=== PATIENT | female | born 1990 | race Caucasian/White ===

== ENCOUNTER 2020-12-23 11:32 | Observation (INO) | payer MEDICAID, SELFPAY ==
--- NOTE | ~2020-12-23 | CT_ITS ---
EXAMINATION: CT abdomen pelvis w con DATE: 12/23/2020 13:05 INDICATION: Abdominal pain TECHNIQUE: Computed tomography (CT) of the abdomen and pelvis was performed with 100 mL Omnipaque-350 intravenous contrast. Automated exposure control and iterative reconstruction technique were employe d. The dose-length product was 342.61 mGy-cm. COMPARISON: None FINDINGS: Minimal bibasilar atelectasis. Heart size is normal. No pericardial or pleural effusion. Liver, gallb ladder, spleen, pancreas and bilateral adrenal glands there are couple thin wedge-shaped regions of d ecreased cortical enhancement at the upper pole of the right kidney raising suspicion for pyelonephri tis. A couple 1-2 mm stones at lower pole calyx of the right kidney with additional 2 mm stone at a l ower pole calyx of the left kidney. No ureteral stones or hydronephrosis. Bowels including the append ix are normal. Bladder, uterus and left adnexa are normal. Subtle peripheral enhancement at a 2.9 cm right ovarian likely corpus luteum cyst. Small amount of intermediate attenuation complex fluid versu s pneumoperitoneum in the cul-de-sac. No abscess or free intraperitoneal gas. No pathologically enlar ged abdominal or pelvic lymphadenopathy. L5 is sacralized on the left. Small hypoplastic riblets bila terally at T12. IMPRESSION: 1. Small amount of nonspecific complex fluid in the cul-de-sac. Differential would include peritoniti s or small amount of hemoperitoneum potentially related to rupture of a 2.9 cm right ovarian likely c orpus luteum cyst. 2. Couple thin wedge-shaped regions of decreased parenchymal enhancement in the right kidney which co uld represent pyelonephritis or scarring related to prior infarct or infection. 3. Nonobstructing bilateral nephrolithiasis. Reviewed, dictated and finalized at location A. IMPRESSION: 1. Small amount of nonspecific complex fluid in the cul-de-sac. Differential wo uld include peritonitis or small amount of hemoperitoneum potentially related t o rupture of a 2.9 cm right ovarian likely corpus luteum cyst. 2. Couple thin wedge-shaped regions of decreased parenchymal enhancement in the right kidney which could represent pyelonephritis or scarring related to prior infarct or infection. 3. Nonobstructing bilateral nephrolithiasis.
[2020-12-23 11:41] VITALS: PULSE 72; RESP 16; TEMP 37.1; O2SAT 100
[2020-12-23 12:08] LABS: Basophils Percent Auto 0.3 % (0.2-1.2); Eosinophils Absolute Auto 0.1 K/mm3 (0-0.3); Eosinophils Percent Auto 1.3 % (0-4.4); Hematocrit 42.4 % (37.0-47.0); Hemoglobin 14.2 g/dL (12.0-15.0); Immature Granulocyte Absolute 0.03 K/mm3 (0.00-0.031); Immature Granulocyte Percent A 0.4 % (0-0.5); Lymphocytes Absolute Auto 2.45 K/mm3 (0.9-3.2); Lymphocytes Percent Auto 34.3 % (18.3-44.2); Mean Corpuscular HGB Conc 33.5 g/dl (32-36); Mean Corpuscular Hemoglobin 30.7 pg (26-34); Mean Corpuscular Volume 91.6 fl (80-100); Mean Platelet Volume 10.4 fl (7.4-10.4); Monocytes Absolute Auto 0.7 K/mm3 (0.1-0.6); Monocytes Percent Auto 10.3 % (2.6-8.5); Neutrophils Absolute Auto 3.8 K/mm3 (1.3-6.7); Neutrophils Percent Auto 53.4 % (45.5-73.1); Platelet Count Result 234 k/mm3 (150-375); Red Blood Count 4.63 M/mm3 (4.2-5.4); Red Cell Distribution Width 12.3 % (11.5-14.5); White Blood Count 7.2 K/mm3 (4.5-10.0)
[2020-12-23 12:13] LABS: Add Urine Microscopic? YES; Appearance Urine Cloudy (Clear); Bilirubin Urine Negative (Negative); Blood Urine Negative (Negative); Color Urine Yellow (Yellow); Glucose Urine UA Negative (Negative); Ketones Urine Negative (Negative); Leukocyte Esterase Ur Negative LEU/UL (Negative); Mucus Urine Rare /lpf; Nitrate Urine Negative (Negative); Protein Urine Negative (Negative); RBC Urine 0-2 /hpf (0-2); Specific Grav Ur 1.018 (1.001-1.035); Squamous Epithelial Cell Urine Many /hpf (Few); Urobilinogen Urine Negative mg/dL (<2.0); WBC Urine 0-3 /hpf
[2020-12-23 12:17] LABS: Alanine Aminotransferase 25 U/L (4-35); Alkaline Phosphatase 58 U/L (38-126); Anion Gap 14 mmol/L (8-16); Aspartate Amino Transferase 24 U/L (14-36); Bilirubin,Total 0.6 mg/dL (0.2-1.3); Blood Urea Nitrogen 15 mg/dL (7-17); Calcium 10.1 mg/dL (8.4-10.2); Carbon Dioxide 25 mmol/L (22-30); Chloride 102 mmol/L (98-107); Estimated CRCL calculation 94 ml/min; Estimated Glomerular Filt Rate > 60; Glucose 96 mg/dL (65-110); Lipase 70 U/L (23-300); Potassium 3.8 mmol/L (3.4-5.0); Sodium 141 mmol/L (137-145)
--- NOTE | 2020-12-23 12:54 | ED.GENADULT ---
HPI - General Adult General Chief complaint: Abdominal Pain Stated complaint: ABD PAIN Time Seen by Provider: 12/23/20 12:14 Source: patient History of Present Illness HPI narrative: Patient is a 30 y/o female complaining of right lower abdominal pain starting about 2 hours ago. She describes her pain as sharp and rates it as 7/10. Her pain radiates to back sometimes. There is no alleviating or exacerbating factor. She has no vomiting, diarrhea, dysuria, hematuria, vaginal bleeding or discharge. Related Data Home Medications Medication Instructions Recorded Confirmed baclofen mg 12/23/20 cetirizine [Allergy Relief mg 12/23/20 12/23/20 (cetirizine)] meloxicam 12/23/20 Allergies Allergy/AdvReac Type Severity Reaction Status Date / Time No Known Allergies Allergy Verified 12/23/20 11:40 Review of Systems Constitutional: Constitutional: Denies chills, Denies fever(s), Denies headache(s) and Denies weakness Eyes: Eyes: Denies blurry vision ENT: Denies headache(s) and Denies neck pain Cardiovascular: Cardiovascular: Denies chest pain and Denies dyspnea Respiratory: Respiratory: Denies cough and Denies dyspnea Gastrointestinal: Gastrointestinal: Reports abdominal pain, Denies diarrhea, Denies nausea and Denies vomiting Genitourinary: Genitourinary: Denies hematuria and Denies dysuria Musculoskeletal: Musculoskeletal: Denies back pain and Denies neck pain Neurologic: Denies headache(s) and Denies weakness [facility] Social History Social History Gender identity (if verbalized by the patient): Female Exam Const: General: no acute distress and well developed Orientation/consciousness: oriented to person, oriented to place, oriented to time and patient oriented x3 HENMT: Head: normocephalic Ears: external ears normal General nose exam: Normal external nose present Eyes: General: appearance normal, both eyes and all related structures Conjunctivae: conjunctivae normal Neck: Neck: normal visual inspection and full ROM Chest: Chest palpation & inspection: normal inspection of the chest and no tenderness Resp: Effort & Inspection: normal respiratory effort Auscultation: clear to auscultation bilaterally Cardio: Rate: regular rate Rhythm: regular rhythm GI: GI Palp: No abdominal tenderness and Yes Soft to palpation Skin: General skin exam: normal color and turgor normal Neuro: General: oriented to person, oriented to place, oriented to time and patient oriented x3 Cognition (Neuro): normal cognition Extrem: General: normal to inspection, full ROM and no pedal edema Psych: Appearance: grossly normal Mental Status: mental status grossly normal Affect: normal affect Course Consultations Consultation #1: Discussed with Shelly (urology), who recommends no specific treatment for abnormal CT findings regarding kidney. Date: 12/23/20 Time: 13:54 Consultation #2: Discussed with Dr. Cortez, who agrees to admit to Dr. Zacarias [place]. Date: 12/23/20 Time: 14:17 Vital Signs Vital signs: Vital Signs Temperature 37.1 C 12/23/20 11:41 Pulse Rate 72 12/23/20 11:41 Respiratory Rate 16 12/23/20 11:41 Pulse Oximetry 100 12/23/20 11:41 Temperature 37.1 C 12/23/20 17:25 Pulse Rate 62 12/23/20 17:35 Respiratory Rate 16 12/23/20 17:35 Blood Pressure 112/81 12/23/20 17:35 Pulse Oximetry 100 12/23/20 17:25 Medical Decision Making Vital Signs Vital Signs: Vital Signs Temperature 37.1 C 12/23/20 11:41 Pulse Rate 72 12/23/20 11:41 Respiratory Rate 16 12/23/20 11:41 Pulse Oximetry 100 12/23/20 11:41 Temperature 37.1 C 12/23/20 17:25 Pulse Rate 62 12/23/20 17:35 Respiratory Rate 16 12/23/20 17:35 Blood Pressure 112/81 12/23/20 17:35 Pulse Oximetry 100 12/23/20 17:25 Lab Data Result diagrams: 12/23/20 11:53 12/23/20 11:53 Labs: Lab Results 12/23/20 07
[2020-12-23] MEDS: KETOROLAC 15 MG/ML VIAL (*BKC) IV PUSH (12:55)
[2020-12-23 13:13] VITALS: BP 101/79; PULSE 67; RESP 14; TEMP 37.1; O2SAT 100
[2020-12-23] MEDS: MORPHINE SULFATE (*CRX) 2 MG/ML INJ IV PUSH (14:06)
[2020-12-23] MEDS: ONDANSETRON INJ 4 MG/2 ML VIAL IV PUSH (14:09)
[2020-12-23] MEDS: fentaNYL CITRATE INJ (*CRX) 100 MCG/2 ML VIAL 50 MCG IV PUSH ×2 (15:38→17:00)
[2020-12-23] MEDS: HYDROcodone/acetaminophen (*CRX) 5-325 MG TABLET 1 TAB PO ×3 (15:38→23:39)
--- NOTE | 2020-12-23 17:20 | PC.NURSE ---
This patient, Yasmin Vasquez, was received from ER per wheelchair to room 280. Patient/family oriented to unit policies and routines
[2020-12-23 17:25] VITALS: BP 101/79; PULSE 67; RESP 14; TEMP 37.1; O2SAT 100
[2020-12-23 17:35] VITALS: BP 112/81; PULSE 62; RESP 16
[2020-12-23 20:20] VITALS: BP 108/71; PULSE 71; RESP 16; TEMP 36.9; O2SAT 98
[2020-12-23] MEDS: MELOXICAM 7.5 MG TABLET 15 MG PO (22:17)
[2020-12-23] MEDS: BACLOFEN 10 MG TABLET PO (22:18)
[2020-12-23 23:32] VITALS: BP 96/58; PULSE 66; RESP 16; TEMP 36.4; O2SAT 96
[2020-12-24] MEDS: HYDROcodone/acetaminophen (*CRX) 5-325 MG TABLET 1 TAB PO ×2 (05:14→09:47)
[2020-12-24 05:19] LABS: Basophils Percent Auto 0.3 % (0.2-1.2); Eosinophils Absolute Auto 0.1 K/mm3 (0-0.3); Eosinophils Percent Auto 1.8 % (0-4.4); Hematocrit 36.2 % (37.0-47.0); Hemoglobin 12.1 g/dL (12.0-15.0); Immature Granulocyte Absolute 0.02 K/mm3 (0.00-0.031); Immature Granulocyte Percent A 0.3 % (0-0.5); Lymphocytes Absolute Auto 2.73 K/mm3 (0.9-3.2); Lymphocytes Percent Auto 40.9 % (18.3-44.2); Mean Corpuscular HGB Conc 33.4 g/dl (32-36); Mean Corpuscular Hemoglobin 30.3 pg (26-34); Mean Corpuscular Volume 90.7 fl (80-100); Mean Platelet Volume 10.7 fl (7.4-10.4); Monocytes Absolute Auto 0.7 K/mm3 (0.1-0.6); Monocytes Percent Auto 9.9 % (2.6-8.5); Neutrophils Absolute Auto 3.1 K/mm3 (1.3-6.7); Neutrophils Percent Auto 46.8 % (45.5-73.1); Platelet Count Result 193 k/mm3 (150-375); Red Blood Count 3.99 M/mm3 (4.2-5.4); Red Cell Distribution Width 12.1 % (11.5-14.5); White Blood Count 6.7 K/mm3 (4.5-10.0)
[2020-12-24] MEDS: ONDANSETRON INJ 4 MG/2 ML VIAL IV PUSH (05:45)
[2020-12-24 08:10] VITALS: BP 103/62; PULSE 66; RESP 16; TEMP 37; O2SAT 98
[2020-12-24] MEDS: DOCUSATE SODIUM 100 MG CAPSULE PO (09:48)
--- NOTE | 2021-02-25 09:56 | PM.DS ---
DS: Admitting Diagnosis Discharge Date 12/24/20 Admitting Diagnosis hemoperitoneum DS: Discharge Diagnosis Discharge Diagnosis (1) Hemoperitoneum: Code(s): K66.1 - Hemoperitoneum Status: Acute (2) Rupture of cyst of right ovary: Code(s): N83.201 - Unspecified ovarian cyst, right side Status: Acute DS: Summary Hospital Course Hospital Course: admitted through ER for observation of pain Time Spent with Patient Time attestation: Total time spent providing and/or coordinating discharge services: Discharge Plan Discharge Consulting providers: Murray Valle Discharging Clinician: Danie Cortez Patient Disposition: Home, Self-Care Activity: may shower and as tolerated Diet: regular Patient Instructions: Ruptured Ovarian Cyst (DC) Stand Alone Forms: General Discharge Information Follow-up/Referrals: Link Gayle MD [Physician] - Discharge Medications: New hydrocodone-acetaminophen 5-325 mg Tablet 1 tablet PO Q3H PRN (Reason: Pain Rated 4-6) Qty: 30 RF: 0 Continued cetirizine [Allergy Relief (cetirizine)] 10 mg tablet 10 mg PO DAILY RF: 0 meloxicam 15 mg tablet 15 mg PO DAILY RF: 0 baclofen 10 mg tablet 10 mg PO HS RF: 0 No Action acetaminophen [Tylenol] 325 mg Capsule 325 mg PO ONCE PRN (Reason: PAIN) RF: 0 cholecalciferol (vitamin D3) [Vitamin D3] 25 mcg (1,000 unit) Tablet 25 mcg PO DAILY RF: 0 ketorolac 10 mg tablet 10 mg PO Q8-10H PRN (Reason: Pain) RF: 0 hydrocodone-acetaminophen 5-325 mg tablet 1 tablet PO Q4H PRN (Reason: pain) Qty: 30 RF: 0 Date of admission: 12/23/20 14:35 Primary Care Provider: Boby Schmidt Admitting Provider: Link Gayle Attending physician on admission: Danie Cortez Condition: Stable
== END 2020-12-24 11:42 | disposition home or self-care (01) ==
LOC: ANHED 12:19 → ANHOB2 12-24 07:21
PROVIDERS: General Practice; Admitting Provider Obstetrics & Gynecology; Emergency Provider Emergency Medicine; PCP Family Medicine Adolescent Medicine; Visit Provider Obstetrics & Gynecology
DX: K66.1 Hemoperitoneum (principal); N83.201 Unspecified ovarian cyst, right side
CPT/HCPCS: 36415; 74177; 80053; 81001; 81025; 83690; 85025; 96374; 96375; 99285; A9270; G0378; G0379; J1885; J2270; J2405; J3010; Q9967

== ENCOUNTER 2020-12-29 03:45 | Day surgery (SDC) | payer OTHER, SELFPAY ==
[2020-12-28 10:37] VITALS: BMI 24.3
--- NOTE | 2020-12-28 15:50 | PM.IMHP ---
H&P: HPI History of Present Illness Date/Time: 12/28/20 15:50 This is a 30 female admitted for diagnostic laparoscopy and possible right ovarian cystectomy. Patient was seen in the ER on 12/23/2020 complaining of severe pelvic pain. She underwent a CT scan which showed a right ovarian cyst and fair amount of pelvic fluid. The pain is unrelenting and she is admitted for diagnostic laparoscopy risks and benefits reviewed Chief Complaint: pelvic pain /right ovarian cyst Review of Systems Review of Systems: All systems reviewed & are unremarkable except as noted in HPI and below PMFSH Social History Social History Smoking status: Never smoker Second hand tobacco smoke exposure: No Alcohol intake: current Drinks per week: 1 Substance use: never Substance use type: does not use Living arrangements: with family Gender identity (if verbalized by the patient): Female Spiritual care concerns: No Meds Home Medications and Allergies Home Medications Medication Instructions Recorded Confirmed Type baclofen 10 mg PO HS 12/23/20 12/28/20 History cetirizine [Allergy Relief 10 mg PO DAILY 12/23/20 12/28/20 History (cetirizine)] meloxicam 15 mg PO DAILY 12/23/20 12/28/20 History hydrocodone-acetaminophen 1 tablet PO Q3H PRN #30 tablet 12/24/20 Rx acetaminophen [Tylenol] 325 mg PO ONCE PRN 12/28/20 12/28/20 History cholecalciferol (vitamin D3) 25 mcg PO DAILY 12/28/20 12/28/20 History [Vitamin D3] ketorolac 10 mg PO Q8-10H PRN 12/28/20 12/28/20 History Allergies Allergy/AdvReac Type Severity Reaction Status Date / Time No Known Allergies Allergy Verified 12/28/20 09:57 Exam Const: General: no acute distress Eyes: General: appearance normal, both eyes and all related structures Neck: Neck: supple and no JVD Thyroid: thyroid normal Resp: Effort & Inspection: normal respiratory effort Auscultation: clear to auscultation bilaterally Cardio: Rate: regular rate Rhythm: regular rhythm GI: Inspection: non-distended GI Palp: Yes Soft to palpation, No Tenderness to palpation present (GI) and No Guarding due to palpation present (GI) Auscultation: normal bowel sounds : External Female Exam: normal external appearance Speculum Exam - Vagina: normal appearance of the vagina Speculum Exam - Cervix: normal appearance of the cervix Bimanual exam- vagina & uterus: Cervical tenderness present Bimanual Exam- Adnexa, other: tender and cul-de-sac tenderness Skin: General skin exam: no rashes or lesions noted Extrem: General: normal to inspection and no edema Psych: Mental Status: mental status grossly normal Affect: normal affect Assessment and Plan Additional Plan impression: Pelvic pain and right ovarian cyst Plan: Diagnostic laparoscopy with possible right cystectomy
[2020-12-29] VITALS (10 sets, daily range): BP systolic 96–123; BP diastolic 53–84; PULSE 55–78; RESP 10–14; TEMP 36.1–36.8; O2SAT 98–100; BMI 26.0
--- NOTE | 2020-12-29 05:44 | WPDHPUPDATE1 ---
History and Physical Update Update Date/Time: 12/29/20 05:44 History and Physical has been reviewed, including an updated exam of the patient. There are NO changes in the patient's condition. Risks, benefits, and alternatives have been discussed and questions answered. Patient agrees to proceed with procedure.
--- NOTE | 2020-12-29 06:45 | WPDANESEPPF ---
Anes - Initial Pre Proc Eval Procedure: Operation Date: 12/29/20 07:30 Proposed Procedures p Diagnostic Laparoscopy - Link Gayle MD Date/Time: 12/29/20 06:45 Surgeon: Link Gayle MD Pre Op Diagnosis: pelvic pain, right ovarian cyst Patient Data Age: 30 Gender: F Height: 1.68 m Weight: 68.5 kg Allergies Allergy/AdvReac Type Severity Reaction Status Date / Time No Known Allergies Allergy Verified 12/28/20 09:57 Home Medications Medication Instructions Recorded Confirmed Type baclofen 10 mg PO HS 12/23/20 12/28/20 History cetirizine [Allergy Relief 10 mg PO DAILY 12/23/20 12/28/20 History (cetirizine)] meloxicam 15 mg PO DAILY 12/23/20 12/28/20 History hydrocodone-acetaminophen 1 tablet PO Q3H PRN #30 tablet 12/24/20 Rx acetaminophen [Tylenol] 325 mg PO ONCE PRN 12/28/20 12/28/20 History cholecalciferol (vitamin D3) 25 mcg PO DAILY 12/28/20 12/28/20 History [Vitamin D3] ketorolac 10 mg PO Q8-10H PRN 12/28/20 12/28/20 History hydrocodone-acetaminophen 1 tablet PO Q4H PRN #30 tablet 12/29/20 Rx Patient hx anesthesia problems: none Family hx anesthesia problems: none [facility] Social History Social History Smoking status: Never smoker Second hand tobacco smoke exposure: No Alcohol intake: current Drinks per week: 1 Substance use: never Substance use type: does not use Living arrangements: with family Gender identity (if verbalized by the patient): Female Spiritual care concerns: No Anes - Eval Final PreProcedure Day of Procedure 12/29/20 06:45 Patient weight: normal Heart: regular rate and rhythm Lungs: clear to auscultation Airway: Mallampati scale class II Neurological: alert and oriented Last oral intake: >/= 8 hours ASA classification: II Emergent: no Anesthetic plan: proceed Anesthesia type and monitoring: general ETT and standard monitoring Informed Consent: The patient's anesthetic plan and its attendant risks and benefits were discussed with the patient/family/POA. Questions were solicited and answers provided to the satisfaction of the patient/family/POA.
--- NOTE | 2020-12-29 06:55 | ECG_ITS ---
Measurements Intervals [place] Rate: 62 P: 60 IA: 186 QRS: 69 QRSD: 96 T: 48 QT: 391 QTc: 400 Interpretive Statements SINUS RHYTHM INCOMPLETE RIGHT BUNDLE BRANCH BLOCK BORDERLINE ECG Electronically Signed On 12-29-2020 7:45:16 CDT by Shiv Sullivan D.O.
[2020-12-29] MEDS: LACTATED RINGERS 1,000 ML 30 ML IV CONT (07:30)
[2020-12-29] MEDS: KETOROLAC 15 MG/ML VIAL (*BKC) IV PUSH (07:30)
[2020-12-29] MEDS: ACETAMINOPHEN 500 MG TABLET 1000 MG PO (07:30)
[2020-12-29] MEDS: SCOPOLAMINE 1.5 MG PATCH TRANSDERM (07:35)
--- NOTE | 2020-12-29 08:08 | W.PM.PROC2 ---
Procedure Note - Detailed Date of Procedure 12/29/20 Pre-op Diagnosis pelvic pain, right ovarian cyst Post-op Diagnosis same Procedure Performed Laparoscopic right ovarian cyst destruction and evacuation of hematoma peritoneum Surgeon Link Gayle MD Anesthesia general Indications this is a 30-year-old female with right ovarian cyst on CT and severe pelvic pain Findings right-sided hemorrhagic ovarian cyst [id number] of blood in the cul-de-sac Description of Procedure the patient was prepped and draped in the normal sterile fashion placed in the dorsal lithotomy position. Under excellent general endotracheal anesthesia weighted speculum placed in posterior fornix vagina. Anterior lip of the cervix grasped with a single-tooth tenaculum and the Simmons's cannula inserted to the cervix. These were attached to be used later for uterine manipulation. After emptying the bladder clear urine the weighted speculum was removed. Gloves were changed. An infraumbilical incision made the Veress needle passed in the abdomen. Abdomen filled with CO2 gas [id number]. The 5mm trocar advanced under direct visualization assuring no injury. The patient placed in Trendelenburg and a suprapubic incision made. The 5mm trocar advanced into the abdomen under direct visualization assuring no injury. The above findings were seen the 100+ cc of blood in the cul-de-sac was removed and then rinsed. A hemorrhagic cyst was seen on the right and this was opened and linear fashion. The clot clumps removed and irrigation undertaken. The ovary returned to normal size. No other abnormalities were seen. Photo documentation was undertaken. The lower site removed. The gas removed from the abdomen. The upper site removed. The incisions closed with 4 O Monocryl and glue. The patient was awakened. She went to recovery in satisfactory condition. All sponge, needle, instrument counts were correct. There were no immediate complications Estimated Blood Loss 5 Drains No Packing No Pathology none sent Complications No immediate complications Condition stable Disposition PACU
[2020-12-29] MEDS: ONDANSETRON INJ 4 MG/2 ML VIAL IV PUSH (08:54)
[2020-12-29] MEDS: fentaNYL CITRATE INJ (*CRX) 100 MCG/2 ML VIAL 25 MCG IV PUSH ×2 (08:56→09:15)
--- NOTE | 2020-12-29 10:30 | SUR.PHASEII ---
1030- Call to Dr. Gayle to clarify what stool softener he would like for patient to take per patient's request. Per Dr. Gayle patient can take Miralax once daily and contact office if still experiencing constipation. Notified Yasmin and spouse, Rodriguez of Dr. Gayle's recommendation and they verbalized understanding.
== END 2020-12-29 10:35 | disposition home or self-care (01) ==
PROVIDERS: PCP Family Medicine Adolescent Medicine; Visit Provider Obstetrics & Gynecology
PROC: (CPT 49320; principal; 2020-12-29 07:30)
DX: R10.2 Pelvic and perineal pain (principal); N83.201 Unspecified ovarian cyst, right side; K66.1 Hemoperitoneum
CPT/HCPCS: 58662; 36415; 86850; 86900; 86901; 93005; A9270; J0330; J1100; J1885; J2250; J2405; J2704; J3010; J7030; J7120

== ENCOUNTER 2021-02-21 14:07 | Outpatient (CLI) | payer OTHER, SELFPAY | END 2021-02-21 14:08 | disposition home or self-care (01) | PROVIDERS: PCP Family Medicine Adolescent Medicine; Visit Provider Obstetrics & Gynecology | DX: Z32.00 Encounter for pregnancy test, result unknown (principal) | CPT/HCPCS: 36415; 84702 ==

== ENCOUNTER 2021-02-23 14:37 | Outpatient (CLI) | payer OTHER, SELFPAY ==
--- NOTE | ~2021-02-23 | US_ITS ---
US OB <=14 wk fetus w TV DATE: 02/23/2021 15:33 INDICATION: Vaginal bleeding. Threatened . TECHNIQUE: Real-time imaging via transabdominal and transvaginal approaches COMPARISON: None FINDINGS: The uterus measures 7.9 cm height, 6.4 cm transverse and 5.6 cm anteroposterior dimension. The central endometrial echo complex measures up to 8.7 mm AP dimension. No intrauterine gestational sac is identified. Right ovary measures 4 x 2.3 x 2.3 cm, with vascular flow. Left ovary measures 2.8 x 2.1 x 2.1 cm, with vascular flow. No pelvic mass lesion or abnormal free pelvic fluid collection is detected. IMPRESSION: No intrauterine gestational sac is identified Reviewed, dictated and finalized at Location [facility]. Reviewed, dictated and finalized at location B.
== END 2021-02-23 14:38 | disposition home or self-care (01) ==
PROVIDERS: PCP Family Medicine Adolescent Medicine; Visit Provider Obstetrics & Gynecology
DX: O20.0 Threatened abortion (principal)
CPT/HCPCS: 76801; 76817

== ENCOUNTER 2021-04-18 09:58 | Outpatient (RCR) | payer OTHER, SELFPAY ==
[2021-04-18 10:51] LABS: Beta HCG Quantitative 12.52 mIU/ML
== END 2021-07-17 23:59 | disposition home or self-care (01) ==
LOC: ANHLAB 09:58
PROVIDERS: PCP Family Medicine Adolescent Medicine; Visit Provider Obstetrics & Gynecology
DX: O20.0 Threatened abortion (principal); Z3A.00 Weeks of gestation of pregnancy not specified
CPT/HCPCS: 36415; 84702

== ENCOUNTER 2021-07-14 10:09 | Emergency (ER) | payer BC, SELFPAY ==
--- NOTE | ~2021-07-14 | CT_ITS ---
EXAMINATION: CT abdomen pelvis w con DATE: 07/14/2021 13:08 INDICATION: Right abdominal pain and nausea. TECHNIQUE: Computed tomography (CT) of the abdomen and pelvis was performed with 100 mL Omnipaque-350 intravenous contrast. Automated exposure control and iterative reconstruction technique were employe d. The dose-length product was 400.58 mGy-cm. COMPARISON: 12/23/2020 FINDINGS: Mild dependent atelectasis in the bilateral lower lobes. Heart size is normal. No pericardial or pleu ral effusion. Liver, gallbladder, spleen, pancreas and bilateral adrenal glands are normal. There are couple nonobstructing stones measuring 2-3 mm at a lower pole calyx of left kidney and 2 mm at a low er pole calyx of the right kidney. Symmetric renal parenchymal enhancement with no hydronephrosis. Bl adder is normal. Retroverted uterus and bilateral adnexa are unremarkable. Bowels including the appen jd are normal. No free intraperitoneal gas or fluid. No pathologically enlarged abdominal or pelvic lymphadenopathy. IMPRESSION: 1. No acute intra-abdominal/pelvic process. Specifically the gallbladder and appendix are normal. 2. Bilateral nonobstructing nephrolithiasis. Reviewed, dictated and finalized at location A. IE PACKER IMPRESSION: 1. No acute intra-abdominal/pelvic process. Specifically the gallbladder and ap pendix are normal. 2. Bilateral nonobstructing nephrolithiasis.
--- NOTE | ~2021-07-14 | US_ITS ---
EXAMINATION: US right upper quadrant DATE: 07/14/2021 12:28 INDICATION: Right upper quadrant pain TECHNIQUE: Multiple grayscale and Doppler ultrasound images of the abdomen were obtained. COMPARISON: None available FINDINGS: The head and body of the pancreas are normal. The pancreatic tail is obscured by bowel gas. The liver demonstrates increased echogenicity, heterogenous echotexture, and decreased through trans mission. No surface nodularity. Normal hepatopetal flow in the main portal vein. The gallbladder is n ormal with no abnormal wall thickening, pericholecystic fluid or stones. The normal common bile duct measures 4 mm. There was no sonographic Ch sign. IMPRESSION: 1. Normal sonographic study of the gallbladder. 2. Diffuse hepatic steatosis. Reviewed, dictated and finalized at location A. OYEE COMMUNICATIONS COORDINATOR
[2021-07-14 10:21] VITALS: BP 124/87; PULSE 70; RESP 18; TEMP 36.6; O2SAT 100
--- NOTE | 2021-07-14 10:31 | ED.GENADULT ---
HPI - General Adult General Chief complaint: Abdominal Pain Stated complaint: abd pain Time Seen by Provider: 07/14/21 10:22 Source: patient and family Mode of arrival: ambulatory Limitations: no limitations History of Present Illness HPI narrative: This 31 year old female patient presents to the ER with complaints of having a couple of weeks of intermittent N/V after eating and intermittent pain in the RLQ. She denies any fevers and she denies any diarrhea but has noted that the pain only occurs after eating. She has no urinary complaints and no CP, dyspnea. She was supposed to have an US on Sunday morning, but could not wait until then. MD complaint: RLQ abdominal pain and epigastric pain. Onset (ago): week(s) (3) Location: abdomen Radiation: non-radiation Severity: severe Severity scale (1-10): 9 Quality: burning and aching Pain Consistency: intermittent Relieving factors: none Exacerbating factors: eating Associated symptoms: nausea/vomiting Treatments prior to arrival: none Related Data Home Medications Medication Instructions Recorded Confirmed baclofen 10 mg PO HS 12/23/20 07/11/21 cetirizine [Allergy Relief 10 mg PO DAILY 12/23/20 07/11/21 (cetirizine)] meloxicam 15 mg PO DAILY 12/23/20 07/11/21 acetaminophen [Tylenol] 325 mg PO ONCE PRN 12/28/20 07/11/21 cholecalciferol (vitamin D3) 25 mcg PO DAILY 12/28/20 07/11/21 [Vitamin D3] ketorolac 10 mg PO Q8-10H PRN 12/28/20 07/11/21 Allergies Allergy/AdvReac Type Severity Reaction Status Date / Time No Known Allergies Allergy Verified 07/11/21 11:23 Review of Systems Review of Systems: All systems reviewed & are unremarkable except as noted in HPI and below Constitutional: Constitutional: Denies chills, Denies fatigue, Denies fever(s) and Denies weakness Cardiovascular: Cardiovascular: Denies chest pain, Denies rapid heart rate and Denies radiating jaw, neck or arm pain Respiratory: Respiratory: Denies cough, Denies dyspnea and Denies wheezing Gastrointestinal: Gastrointestinal: Reports as per HPI, Reports no additional gastrointestinal complaints, Reports abdominal pain, Reports bloating, Reports heartburn and Reports nausea Comments: Pain is present in the epigastric region with eating and then in the RLQ at random times. Genitourinary: Genitourinary: Denies hematuria, Denies nocturia, Denies dysuria, Reports pelvic pain and Denies flank pain Musculoskeletal: Musculoskeletal: Denies back pain, Denies arthralgias and Denies muscle cramps Neurologic: Denies dizziness, Denies headache(s), Denies focal weakness and Denies numbness Psychiatric: Psychiatric: Denies anxiety and Denies depression Endocrine: Endocrine: Denies fatigue and Denies polydipsia Hematologic/Lymphatic: Hematologic/Lymphatic: Denies easy bleeding and Denies easy bruising Allergic/Immunologic: Allergic/Immunologic: Denies lip swelling and Denies tongue swelling PMFSH Past Medical History Medical History Generalized anxiety disorder Social History Social History Smoking status: Never smoker Second hand tobacco smoke exposure: No Alcohol intake: current Drinks per week: 1 Substance use: never Substance use type: does not use Gender identity (if verbalized by the patient): Female Sexual Orientation (if Verbalized by the Patient): Straight or Heterosexual Spiritual care concerns: No Agree to blood products: Yes Exam Const: General: healthy appearing and alert Orientation/consciousness: patient oriented x3 Limitations: No physical limitations Other: + Distress present due to pain HENMT: Head: normal to inspection Ears: EAC's normal General nose exam: Normal nares present Face and sinus: normal facial exam Eyes: Conjunctivae: conjunctivae normal Pupils: Equal, round and reactive pupils present Neck: Neck: normal visual inspection a
--- NOTE | 2021-07-14 10:54 | ECG_ITS ---
Measurements Intervals [place] Rate: 56 P: 55 TN: 194 QRS: 60 QRSD: 92 T: 41 QT: 416 QTc: 405 Interpretive Statements SINUS BRADYCARDIA BORDERLINE ECG Electronically Signed On 07-14-2021 12:23:24 RECORDS SECTION SUPERVISOR by Shiv Sullivan D.O.
[2021-07-14] MEDS: ONDANSETRON INJ 4 MG/2 ML VIAL IV PUSH (11:17)
[2021-07-14] MEDS: PANTOPRAZOLE SODIUM IV 40 MG VIAL IV PUSH (11:17)
[2021-07-14] MEDS: SODIUM CHLORIDE 0.9% IV 1,000 ML 999 ML IV CONT (11:17)
[2021-07-14] MEDS: fentaNYL CITRATE INJ (*CRX) 100 MCG/2 ML VIAL 50 MCG IV PUSH (11:17)
[2021-07-14 11:20] LABS: Basophils Percent Auto 0.2 % (0.2-1.2); Eosinophils Absolute Auto 0.1 K/mm3 (0-0.3); Eosinophils Percent Auto 1.7 % (0-4.4); Hematocrit 40.1 % (37.0-47.0); Hemoglobin 13.9 g/dL (12.0-15.0); Immature Granulocyte Absolute 0.02 K/mm3 (0.00-0.031); Immature Granulocyte Percent A 0.3 % (0-0.5); Lymphocytes Absolute Auto 1.98 K/mm3 (0.9-3.2); Lymphocytes Percent Auto 34.3 % (18.3-44.2); Mean Corpuscular HGB Conc 34.7 g/dl (32-36); Mean Corpuscular Hemoglobin 31.4 pg (26-34); Mean Corpuscular Volume 90.5 fl (80-100); Mean Platelet Volume 10.3 fl (7.4-10.4); Monocytes Absolute Auto 0.6 K/mm3 (0.1-0.6); Monocytes Percent Auto 9.9 % (2.6-8.5); Neutrophils Absolute Auto 3.1 K/mm3 (1.3-6.7); Neutrophils Percent Auto 53.6 % (45.5-73.1); Platelet Count Result 201 k/mm3 (150-375); Red Blood Count 4.43 M/mm3 (4.2-5.4); Red Cell Distribution Width 12.3 % (11.5-14.5); White Blood Count 5.8 K/mm3 (4.5-10.0)
[2021-07-14 11:37] LABS: Alanine Aminotransferase 32 U/L (4-35); Albumin Level 4.5 g/dL (3.5-5.1); Alkaline Phosphatase 51 U/L (38-126); Anion Gap 7 mmol/L (8-16); Aspartate Amino Transferase 28 U/L (14-36); Bilirubin,Total 0.6 mg/dL (0.2-1.3); Blood Urea Nitrogen 12 mg/dL (7-17); Carbon Dioxide 27 mmol/L (22-30); Chloride 104 mmol/L (98-107); Estimated CRCL calculation 93 ml/min; Estimated Glomerular Filt Rate > 60; Glucose 95 mg/dL (65-110); Lipase 44 U/L (23-300); Potassium 4.1 mmol/L (3.4-5.0); Sodium 138 mmol/L (137-145)
[2021-07-14 11:49] LABS: Prothrombin Time 13.2 Seconds (11.1-14.7)
[2021-07-14 11:50] LABS: Partial Thromboplastin Time 29.8 SECONDS (22.3-36.8)
[2021-07-14 12:14] LABS: Add Urine Microscopic? NO; Appearance Urine Clear (Clear); Bilirubin Urine Negative (Negative); Blood Urine Negative (Negative); Color Urine Yellow (Yellow); Glucose Urine UA Negative (Negative); Ketones Urine Negative (Negative); Leukocyte Esterase Ur Negative LEU/UL (Negative); Nitrate Urine Negative (Negative); Protein Urine Negative (Negative); Specific Grav Ur 1.019 (1.001-1.035); Urobilinogen Urine Negative mg/dL (<2.0)
[2021-07-14] MEDS: PROMETHAZINE HCL 25 MG/ML AMPUL 12.5 MG IV PUSH (12:55)
--- NOTE | 2021-07-14 16:44 | ECG_ITS ---
Measurements Intervals [place] Rate: 56 P: 55 HI: 194 QRS: 60 QRSD: 92 T: 41 QT: 416 QTc: 405 Interpretive Statements SINUS BRADYCARDIA BORDERLINE ECG Electronically Signed On 07-15-2021 16:50:07 RECEIVER SETTER by Shiv Sullivan D.O.
== END 2021-07-14 14:28 | disposition home or self-care (01) ==
PROVIDERS: Emergency Provider Nurse Practitioner Adult Health; PCP Family Medicine Adolescent Medicine
DX: N20.0 Calculus of kidney (principal); K29.00 Acute gastritis without bleeding; R00.1 Bradycardia, unspecified
CPT/HCPCS: 36415; 74177; 76705; 80053; 81003; 81025; 83690; 85025; 85610; 85730; 93005; 96361; 96374; 96375; 99284; C9113; J2405; J2550; J3010; J7030; Q9967

== ENCOUNTER → 2022-01-24 15:41 | Outpatient (CLI) | payer BC, MEDICAID, SELFPAY ==
--- NOTE | ~2022-01-24 | US_ITS ---
EXAMINATION: US breast RT limited HISTORY: Palpable lumps of the inner and lower right breast TECHNIQUE: Limited right breast ultrasound is performed. FINDINGS: There is no evidence of focal abnormal cystic or solid mass in the vicinity of the reported palpable abnormalities of concern. IMPRESSION: No specific sonographic correlate is identified for the reported palpable abnormalities of concern. F urther evaluation at this time should be based on clinical assessment. Continued follow-up physical e xamination is recommended. BI-RADS Category 1: Negative Reviewed, dictated and finalized at location A. IMPRESSION: No specific sonographic correlate is identified for the reported palpable abnor malities of concern. Further evaluation at this time should be based on clinica l assessment. Continued follow-up physical examination is recommended. BI-RADS Category 1: Negative
== END ==
PROVIDERS: PCP Family Medicine Adolescent Medicine; Visit Provider Obstetrics & Gynecology
DX: N60.01 Solitary cyst of right breast (principal)
CPT/HCPCS: 76642

== ENCOUNTER 2022-01-27 11:36 | Outpatient (CLI) | payer BC, MEDICAID, SELFPAY | END 2022-01-27 11:37 | disposition home or self-care (01) | LOC: ANHSURGERY 11:39 | PROVIDERS: PCP Family Medicine Adolescent Medicine; Visit Provider Obstetrics & Gynecology | DX: Z01.812 Encounter for preprocedural laboratory examination (principal); R10.2 Pelvic and perineal pain | CPT/HCPCS: 36415; 86850; 86900; 86901 ==

== ENCOUNTER 2022-02-01 17:13 | Outpatient (CLI) | payer BC, MEDICAID, SELFPAY ==
[2022-02-01 18:06] LABS: Beta HCG Quantitative < 2.39 mIU/ML
== END 2022-02-01 17:14 | disposition home or self-care (01) ==
PROVIDERS: PCP Family Medicine Adolescent Medicine; Visit Provider Obstetrics & Gynecology
DX: Z01.812 Encounter for preprocedural laboratory examination (principal)
CPT/HCPCS: 36415; 84702

== ENCOUNTER 2022-02-03 01:59 | Day surgery (SDC) | payer BC, MEDICAID, SELFPAY ==
--- NOTE | 2022-01-24 10:21 | SUR.PREOP ---
Report to the Outpatient Waiting Room, entrance under the green pavilion located off [facility], at time 0730 on date 02/03/22. OR Time: 0930. - You and your visitor will be asked to self-screen and do not enter if you have any COVID symptoms. - Only one visitor and NO children visitors are allowed at this time. - The patient visitor is requested to leave or wait in car when not with patient due to restrictions. - A mask is required within the hospital. Patients may have clear liquids (water, carbonated beverages, clear teas, apple juice) until 3 hours prior to surgery with a maximum of 20 ounces. - NO CLEAR LIQUIDS AFTER 0630 - No food from midnight until time of surgery - Infants may have breast milk until 4 hours before surgery, formula 6 hours prior to surgery. - Children will be allowed to drink immediately following surgery. If applicable, please bring a bottle or sippy cup to assist with drinking. Juice, water, soda, and popsicles are readily available. For infants on formula, please bring formula the day of surgery. Pacifiers are allowed. Take the following medications with a SIP of water the morning of surgery: TYLENOL Please no make-up, nail iranian, hairspray, perfume, deodorant, or body powder the day of surgery. No jewelry (including any body piercings) or valuables the day of surgery, leave them at home. Please take a shower or bath the night before, or the morning of, surgery with an antibacterial soap. Wear comfortable, loose fitting clothing. Children are encouraged to wear pajamas. - Jewelry must be removed prior to entering the operating room. Rings and piercings that are not removed may be cut off. - The hospital will not accept responsibility for valuables. - Please leave all valuables, including medications, at home the day of surgery. If you are going home after surgery, a licensed funeral limousine driver must drive you home. - NO public transportation without another adult. - We recommend that an adult stay with you for 24 hours following discharge. - We also recommend that you do not drive, make important decision, drink alcoholic beverages, or take any drugs that were not prescribed by your health care provider for at least 24 hours after your discharge time. For Pediatric surgeries, we recommend two adults accompany the child home (only one inside the building at this time). Follow any additional instructions given to you from your surgeon. If you or anyone in your household have experienced Covid symptoms in the past week, please notify your surgeon or the nurse liaison at the phone number below for possible testing. Telephone instructions given to HAMZAH BACH and asked if any additional questions and then verbalized understanding. Patient advised to call surgeon office or pre surgery nurse liaison [phone] if any additional questions.
[2022-01-24 10:28] VITALS: BMI 25.9
--- NOTE | 2022-02-02 10:16 | P.HP_ITS ---
H&P: HPI History of Present Illness Date/Time: 02/02/22 10:16 Chief Complaint: Pelvic pain Narrative: this is 31-year-old multiparous patient admitted for diagnostic laparoscopy secondary to pain. Her periods have been irregular she has had pain dyspareunia. There is a family history of endometriosis. Risks and benefits of the procedure reviewed in great detail [facility] Past Medical History Medical History Constipation Generalized anxiety disorder Nausea Overweight (BMI 25.0-29.9) Family History Family History Son Asthma Grandparent Depression Diabetes mellitus Heart disease Hypertension Mother Depression Father Depression Social History Social History Smoking status: Never smoker Second hand tobacco smoke exposure: No Alcohol intake: current Drinks per week: 1 Substance use: never Substance use type: does not use Gender identity (if verbalized by the patient): Female Sexual Orientation (if Verbalized by the Patient): Straight or Heterosexual Spiritual care concerns: No Agree to blood products: Yes Meds Home Medications and Allergies Home Medications Medication Instructions Recorded Confirmed Type cetirizine 10 mg tablet (Allergy 10 mg PO DAILY 12/23/20 01/24/22 History Relief (cetirizine)) acetaminophen 325 mg capsule 325 mg PO ONCE PRN PAIN 12/28/20 01/24/22 History (Tylenol) pantoprazole 40 mg tablet,delayed 40 mg PO DAILY 1 month #30 tabs 12/27/21 01/24/22 Rx release scopolamine base 1 mg over 3 days 1 patch transdermal Q3D PRN motion 01/02/22 01/24/22 Rx transdermal patch sickness #2 ea baclofen 10 mg tablet 10 mg PO HS 01/24/22 01/24/22 History levothyroxine 25 mcg tablet 25 mcg PO DAILY 01/24/22 01/24/22 History Allergies Allergy/AdvReac Type Severity Reaction Status Date / Time No Known Allergies Allergy Verified 01/24/22 10:28 Exam Const: General: cooperative, healthy appearing and comfortable Nutritional Appearance: average body habitus Orientation/consciousness: oriented to person, oriented to place and oriented to time Chest: Chest palpation & inspection: normal inspection of the chest Resp: Effort & Inspection: normal respiratory effort Cardio: Rate: regular rate Rhythm: regular rhythm Heart sounds: S1 normal heart sound present and S2 normal heart sound present GI: Inspection: normal to inspection : Speculum Exam - Vagina: normal appearance of the vagina Speculum Exam - Cervix: normal appearance of the cervix and Cervical os closed Bimanual exam- vagina & uterus: Uterine tenderness Bimanual Exam- Adnexa, other: tender bilaterally Assessment and Plan Assessment and plan (1) Pelvic pain: Code(s): R10.2 - Pelvic and perineal pain Status: Acute Plan diagnostic laparoscopy
[2022-02-03] VITALS (9 sets, daily range): BP systolic 109–140; BP diastolic 61–89; PULSE 57–77; RESP 8–16; TEMP 36.6; O2SAT 95–100
--- NOTE | 2022-02-03 07:13 | WPDHPUPDATE1 ---
History and Physical Update Update Date/Time: 02/03/22 07:13 History and Physical has been reviewed, including an updated exam of the patient. There are NO changes in the patient's condition. Risks, benefits, and alternatives have been discussed and questions answered. Patient agrees to proceed with procedure.
[2022-02-03] MEDS: LACTATED RINGERS 1,000 ML 30 ML IV CONT ×2 (07:23→08:56)
--- NOTE | 2022-02-03 07:53 | WPDANESEPPF ---
Anes - Initial Pre Proc Eval Procedure: Operation Date: 02/03/22 08:30 Proposed Procedures p Diagnostic Laparoscopy - Link Washington MD Date/Time: 02/03/22 07:53 Surgeon: Link Washington MD Pre Op Diagnosis: Pelvic Pain Patient Data Age: 31 Gender: F Height: 1.68 m Weight: 74.55 kg Last Vital Signs Temp 36.6 C 02/03/22 07:03 Pulse 69 02/03/22 07:03 Resp 16 02/03/22 07:03 BP 116/73 02/03/22 07:03 Pulse Ox 100 02/03/22 07:03 O2 Del Method Room Air 02/03/22 07:03 Allergies Allergy/AdvReac Type Severity Reaction Status Date / Time nitroglycerin AdvReac Loss of Verified 02/03/22 07:18 Consciousness Home Medications Medication Instructions Recorded Confirmed Type cetirizine 10 mg tablet (Allergy 10 mg PO DAILY 12/23/20 02/03/22 History Relief (cetirizine)) acetaminophen 325 mg capsule 325 mg PO ONCE PRN PAIN 12/28/20 02/03/22 History (Tylenol) pantoprazole 40 mg tablet,delayed 40 mg PO DAILY 1 month #30 tabs 12/27/21 02/03/22 Rx release scopolamine base 1 mg over 3 days 1 patch transdermal Q3D PRN motion 01/02/22 02/03/22 Rx transdermal patch sickness #2 ea baclofen 10 mg tablet 10 mg PO HS 01/24/22 02/03/22 History levothyroxine 25 mcg tablet 25 mcg PO DAILY 01/24/22 02/03/22 History hydrocodone 5 mg-acetaminophen 325 1 tablet PO Q4H PRN pain #30 tabs 02/03/22 Rx mg tablet Patient hx anesthesia problems: post op nausea/vomiting Family hx anesthesia problems: none Results Review: All pre-operative results and documents have been reviewed as part of the pre-operative evaluation. [facility] Past Medical History Medical History Constipation Generalized anxiety disorder Nausea Overweight (BMI 25.0-29.9) Surgical History Surgical History (Updated 02/03/22 @ 07:53 by Link Howard MD) H/O laparoscopy Family History Family History Son Asthma Grandparent Depression Diabetes mellitus Heart disease Hypertension Mother Depression Father Depression Social History Social History Smoking status: Never smoker Second hand tobacco smoke exposure: No Alcohol intake: current Drinks per week: 1 Substance use: never Substance use type: does not use Living arrangements: with family Gender identity (if verbalized by the patient): Female Sexual Orientation (if Verbalized by the Patient): Straight or Heterosexual Spiritual care concerns: No Agree to blood products: Yes Anes - Eval Final PreProcedure Day of Procedure 02/03/22 07:53 Patient weight: overweight Heart: regular rate and rhythm Lungs: clear to auscultation Airway: Mallampati scale class II Neurological: alert and oriented Last oral intake: >/= 8 hours ASA classification: II Emergent: no Anesthetic plan: proceed Anesthesia type and monitoring: general ETT Results Review: All pre-operative results and documents have been reviewed as part of the pre-operative evaluation. Informed Consent: The patient's anesthetic plan and its attendant risks and benefits were discussed with the patient/family/POA. Questions were solicited and answers provided to the satisfaction of the patient/family/POA.
[2022-02-03] MEDS: KETOROLAC 15 MG/ML VIAL (*BKC) IV PUSH (07:54)
[2022-02-03] MEDS: ACETAMINOPHEN 500 MG TABLET 1000 MG PO (07:54)
[2022-02-03] MEDS: SCOPOLAMINE 1.5 MG PATCH TRANSDERM (07:57)
--- NOTE | 2022-02-03 08:50 | W.PM.PROC2 ---
Procedure Note - Detailed Date of Procedure 02/03/22 Pre-op Diagnosis Pelvic Pain Post-op Diagnosis Other (With right ovarian cyst and endometriosis) Procedure Performed Laparoscopic destruction of right ovarian cyst laparoscopic destruction endometriosis Surgeon Link Washington MD Anesthesia General Indications This is a 31-year-old female with a history of pelvic pain Findings Normal-appearing left ovary tube and uterus. [id number] of serosanguineous fluid in the cul-de-sac. A small powder burn area of endometriosis in the cul-de-sac and on the right ovary Description of Procedure Patient was prepped draped in normal sterile fashion placed in the dorsal lithotomy position. Under excellent general endotracheal anesthesia weighted speculum was placed. Bladder drained clear urine and a single-tooth grabbed the cervix and then attached to an acorn cannula in the cervix to be used for uterine manipulation. The weighted speculum was then removed and gloves were changed. A supraumbilical incision needle passed in the. Filled with CO2 gas to 15 of mercury. The 5 trocar advanced under direct visualization assuring no injury. Patient placed in [facility] in [place] a suprapubic incision made. The 5mm trocar advanced in the abdomen under direct visualization assuring no injury. The serosanguineous fluid in cul-de-sac was suction and removed. A large right ovarian cyst was seen in this was drained of clear follicular fluid and irrigation undertaken. Two small powder burn areas of endometriosis were seen the right ovary and these were cauterized at 35 w per 2nd. A small powder burn endometriosis lesion was seen in the cul-de-sac and this was cauterized as well. Irrigation was undertaken until clear. Hemostasis was assured. The lower site removed. The gas removed from the abdomen. The trocars removed. The incisions closed with 4-0 Monocryl glue. The patient was awakened and went to recovery in satisfactory condition. All sponge, needle, instrument counts were correct. There were no immediate complications Estimated Blood Loss 5 Drains No Packing No Pathology None sent Complications No immediate complications Condition Stable Disposition PACU
[2022-02-03] MEDS: fentaNYL CITRATE INJ (*CRX) 100 MCG/2 ML VIAL 25 MCG IV PUSH ×5 (09:23→10:17)
[2022-02-03] MEDS: oxyCODONE HCL (*CRX) 5 MG TAB IR PO (10:23)
== END 2022-02-03 11:17 | disposition home or self-care (01) ==
PROVIDERS: PCP Family Medicine Adolescent Medicine; Visit Provider Obstetrics & Gynecology
PROC: (CPT 49320; principal; 2022-02-03 08:30)
DX: R10.2 Pelvic and perineal pain (principal); N83.201 Unspecified ovarian cyst, right side; N80.3 Endometriosis of pelvic peritoneum; N80.1 Endometriosis of ovary; F41.1 Generalized anxiety disorder; N92.6 Irregular menstruation, unspecified; N94.10 Unspecified dyspareunia; E03.9 Hypothyroidism, unspecified
CPT/HCPCS: 58662; A9270; J0330; J1100; J1885; J2250; J2405; J2704; J3010; J7030; J7120

== ENCOUNTER 2022-09-15 00:48 | Day surgery (SDC) | payer BC, SELFPAY ==
[2022-09-11 15:01] VITALS: BMI 27.7
--- NOTE | 2022-09-11 15:06 | PC.NURSE ---
Report to the Outpatient Waiting Room, entrance under the green pavilion located off [facility], at time 8:15 on date 09/15/22. Planned Procedure Time: 10:15. Time changes happen often and if your time is changed the preop area will call you the afternoon before. - You and your visitor will be asked to self-screen and do not enter if you have any COVID symptoms. - A mask is optional within the hospital at this time. Patients may have clear liquids (water, carbonated beverages, clear teas, apple juice) until 3 hours prior to surgery with a maximum of 20 ounces. - No food from midnight until time of surgery Take the following medications with a SIP of water the morning of surgery: N/A DO NOT STOP ANY OF YOUR OTHER PRESCRIPTION MEDICATIONS PRIOR TO SURGERY?EXCEPT THE FOLLOWING Medications to discontinue per physician: N/A Date to take last dose: N/A Please no make-up, nail yoruba, hairspray, perfume, deodorant, or body powder the day of surgery. No jewelry (including any body piercings) or valuables the day of surgery, leave them at home. Please take a shower or bath the night before, or the morning of, surgery with an antibacterial soap. Wear comfortable, loose fitting clothing. - Jewelry must be removed prior to entering the operating room. Rings and piercings that are not removed may be cut off. - The hospital will not accept responsibility for valuables. - Please leave all valuables, including medications, at home the day of surgery. If you are going home after surgery, a licensed driver engineer must drive you home. - NO public transportation without another adult if you receive anesthesia. - We recommend that an adult stay with you for 24 hours following discharge. - We also recommend that you do not drive, make important decision, drink alcoholic beverages, or take any drugs that were not prescribed by your health care provider for at least 24 hours after your discharge time. Follow any additional instructions given to you from your surgeon. If you or anyone in your household have experienced Covid symptoms in the past week, please notify your surgeon or the nurse liaison at the phone number below for possible testing. Telephone instructions given to PT - HAMZAH BACH and asked if any additional questions and then verbalized understanding. Patient advised to call surgeon office or pre surgery nurse liaison [phone] if any additional questions.
--- NOTE | 2022-09-13 06:21 | P.HP_ITS ---
H&P: HPI History of Present Illness Date/Time: 09/13/22 06:21 Chief Complaint: irregular periods and recurrent miscarriage with thickened endometrium on imaging Narrative: set 32-year-old multiparous female admitted for hysteroscopy dilatation curettage secondary to irregular bleeding and thickened endometrium. She has had recurrent miscarriage. Risks and benefits reviewed [facility] Past Medical History Medical History Constipation Generalized anxiety disorder Nausea Overweight (BMI 25.0-29.9) Surgical History Surgical History H/O laparoscopy Family History Family History Son Asthma Grandparent Depression Diabetes mellitus Heart disease Hypertension Mother Depression Father Depression Social History Social History Smoking status: Never smoker Second hand tobacco smoke exposure: No Alcohol intake: never Drinks per week: 1 Substance use: never Substance use type: does not use Living arrangements: with family Occupation/Education: occupation Gender identity (if verbalized by the patient): Female Sexual Orientation (if Verbalized by the Patient): Straight or Heterosexual Spiritual care concerns: No Agree to blood products: Yes Meds Home Medications and Allergies Home Medications Medication Instructions Recorded Confirmed Type cetirizine 10 mg tablet (Allergy 10 mg PO HS 12/23/20 09/11/22 History Relief (cetirizine)) levothyroxine 50 mcg tablet 50 mcg PO HS 09/11/22 09/11/22 History Allergies Allergy/AdvReac Type Severity Reaction Status Date / Time nitroglycerin AdvReac Loss of Verified 09/11/22 15:00 Consciousness Exam Const: General: cooperative, healthy appearing, comfortable and well groomed Nutritional Appearance: average body habitus Orientation/consciousness: oriented to person, oriented to place and oriented to time HENMT: Head: normal to inspection Resp: Effort & Inspection: normal respiratory effort Cardio: Rate: regular rate Rhythm: regular rhythm Heart sounds: S1 normal heart sound present and S2 normal heart sound present GI: Inspection: normal to inspection : External Female Exam: normal external appearance Speculum Exam - Vagina: normal appearance of the vagina Speculum Exam - Cervix: normal appearance of the cervix Bimanual exam- vagina & uterus: non-tender Bimanual Exam- Adnexa, other: normal adnexae Assessment and Plan Assessment and plan (1) Irregular bleeding: Code(s): N92.6 - Irregular menstruation, unspecified Status: Acute Plan hysteroscopy/dilatation and curettage
--- NOTE | 2022-09-15 05:53 | WPDHPUPDATE1 ---
History and Physical Update Update Date/Time: 09/15/22 05:53 History and Physical has been reviewed, including an updated exam of the patient. There are NO changes in the patient's condition. Risks, benefits, and alternatives have been discussed and questions answered. Patient agrees to proceed with procedure.
[2022-09-15 07:50] VITALS: BMI 28.0
[2022-09-15 07:55] VITALS: BP 121/83; PULSE 76; RESP 14; TEMP 36.9; O2SAT 100
--- NOTE | 2022-09-15 08:40 | SUR.PREOP ---
0805- Notified Dr. Howard and Dr. Zacarias Washington patient's urine test positive. Per Dr. Zacarias Washington STAT orders for beta HCG and progesterone, cancel orders for H&H. Per Dr. Zacarias Washington he will go to bedside and discuss positive urine test and discharging to home after lab work is drawn. 0840- Patient discharged to home after discharge instructions reviewed. All questions and concerns answered by Dr. Zacarias Washington- patient and spouse Rodriguez verbalized understanding and agreeable to discharge home at this time.
[2022-09-20 04:56] LABS: Progesterone 4.1 ng/mL (***)
== END 2022-09-15 08:45 | disposition home or self-care (01) ==
PROVIDERS: PCP Family Medicine Adolescent Medicine; Visit Provider Obstetrics & Gynecology
PROC: 0U5B8ZZ Destruction of Endometrium, Via Natural or Artificial Opening Endoscopic (ICD-10-PCS; CPT 58563; principal; 2022-09-15 10:15)
DX: N92.6 Irregular menstruation, unspecified (principal); Z53.09 Procedure and treatment not carried out because of other contraindication; Z32.01 Encounter for pregnancy test, result positive
CPT/HCPCS: 36415; 84144; 84702; 99212; G0463

== ENCOUNTER 2022-12-12 22:02 | Emergency (ER) | payer BC, SELFPAY ==
--- NOTE | ~2022-12-12 | XR_ITS ---
EXAM: XR elbow LT min 3V DATE: 12/12/2022 23:00 HISTORY: pain status post fall, shield abdomen pt is pregna . COMPARISON: None available. FINDINGS: Normal mineralization. Mildly comminuted, intra-articular the medial portion of the elbow. The dominant fragment includes the capitulum and is rotated in an anterior and superior direction. D islocation of the radial head. Large joint effusion. No lytic or blastic lesion. Joint spaces are demetris ntained. No erosion or periosteal change. Soft tissues within normal limits. IMPRESSION: Mildly comminuted intra-articular fracture of the medial aspect of the left elbow, with a nterosuperior rotation of the major fragment, which includes the capitulum, and resultant dislocation of the radial head. Reviewed, dictated and finalized at location K. IMPRESSION: Mildly comminuted intra-articular fracture of the medial aspect of the left elbow, with anterosuperior rotation of the major fragment, which inclu trisha the capitulum, and resultant dislocation of the radial head.
[2022-12-12 22:07] VITALS: BP 125/80; PULSE 90; RESP 14; TEMP 36.9; O2SAT 99
[2022-12-12 22:39] VITALS: BP 117/72; PULSE 81; RESP 16; O2SAT 100
--- NOTE | 2022-12-12 23:00 | PC.NURSE ---
This RN assumed care of patient.
[2022-12-12 23:15] VITALS: BP 113/65; PULSE 74; RESP 19; O2SAT 100
[2022-12-12 23:31] VITALS: BP 105/62; PULSE 76; RESP 18
[2022-12-12 23:46] VITALS: BP 123/83; PULSE 79; RESP 20
--- NOTE | 2022-12-13 00:12 | ED.GENADULT ---
HPI - General Adult General Chief complaint: Fall Stated complaint: fall, 18 weeks Time Seen by Provider: 12/12/22 22:26 History of Present Illness HPI narrative: Patient is a 32-year-old female who presents the emergency department with chief complaint of the left elbow pain. Patient reports she is 18 weeks and rolled her ankle landed on her left upper extremity with an outstretched hand reports pain in her left elbow patient reports the pain is worse with movement. Patient reports no laceration denies numbness or tingling. Related Data Home Medications Medication Instructions Recorded Confirmed cetirizine 10 mg tablet (Allergy 10 mg PO HS 12/23/20 09/11/22 Relief (cetirizine)) levothyroxine 50 mcg tablet 50 mcg PO HS 09/11/22 09/15/22 Allergies Allergy/AdvReac Type Severity Reaction Status Date / Time nitroglycerin AdvReac Loss of Verified 09/15/22 10:35 Consciousness Review of Systems Review of Systems: A 10 system review of systems was completed on the patient and is negative except for what is stated in the HPI. Nursing and ancillary documentation was reviewed. [facility] Past Medical History Medical History Constipation Generalized anxiety disorder Nausea Overweight (BMI 25.0-29.9) Surgical History Surgical History H/O laparoscopy Family History Family History Son Asthma Grandparent Depression Diabetes mellitus Heart disease Hypertension Mother Depression Father Depression Social History Social History Smoking status: Never smoker Second hand tobacco smoke exposure: No Alcohol intake: never Drinks per week: 1 Substance use: never Substance use type: does not use Living arrangements: with family Occupation/Education: occupation Gender identity (if verbalized by the patient): Female Sexual Orientation (if Verbalized by the Patient): Straight or Heterosexual Spiritual care concerns: No Agree to blood products: Yes Exam Narrative: GENERAL: Well-appearing, well-nourished, and in no acute distress. HEAD: Normocephalic, atraumatic. EYES: PERRLA and EOMI. ENT: Nares clear, no rhinorrhea or epistaxis. Mucous membranes moist. NECK: Supple. CHEST: Clear to auscultation. No respiratory distress. HEART: Regular rate and rhythm. No murmur heard. Normal peripheral pulses. ABDOMEN: Soft, nontender, nondistended, normal active bowel sounds. EXTREMITIES: Normal range of motion in all extremities except for left upper extremity. There is tenderness and swelling in the left elbow no laceration, intact pulses. No edema. SKIN: Warm, dry, no rash. NEURO: No focal deficits. Alert and oriented x3. PSYCH: Normal mood and affect. Course Vital Signs Vital signs: Vital Signs Temperature 36.9 C 12/12/22 22:07 Pulse Rate 90 12/12/22 22:07 Respiratory Rate 14 12/12/22 22:07 Blood Pressure 125/80 12/12/22 22:07 Pulse Oximetry 99 12/12/22 22:07 Oxygen Delivery Room Air 12/12/22 22:07 Temperature 36.9 C 12/12/22 22:07 Pulse Rate 74 12/12/22 23:15 Respiratory Rate 19 12/12/22 23:15 Blood Pressure 113/65 12/12/22 23:15 Pulse Oximetry 100 12/12/22 23:15 Oxygen Delivery Room Air 12/12/22 22:39 Transfer Transfered to: [facility] Transportation: BLS Transfer rationale: Higher level of care and advanced orthopedic care and OB Accepting physician: Sanjana Medical Decision Making [facility] Narrative Medical decision making narrative: Differential diagnosis includes fracture, dislocation Plan: X-rays of the left elbow showed a significant fracture: Mildly comminuted intra-articular fracture of the medial aspect of the left elbow, with anterosup
[2022-12-13 00:16] VITALS: BP 119/74; PULSE 82; RESP 17
--- NOTE | 2022-12-22 02:50 | PC.NURSE ---
This RN made a late entry. EDP had a verbal order to place a long arm split on pt.
== END 2022-12-13 01:43 | disposition short-term general hospital (02) ==
PROVIDERS: Emergency Provider Emergency Medicine; PCP Family Medicine Adolescent Medicine
DX: O9A.212 Injury, poisoning and certain other consequences of external causes complicating pregnancy, second trimester (principal); S42.402A Unspecified fracture of lower end of left humerus, initial encounter for closed fracture; O99.282 Endocrine, nutritional and metabolic diseases complicating pregnancy, second trimester; E66.3 Overweight; Z3A.18 18 weeks gestation of pregnancy; W18.39XA Other fall on same level, initial encounter
CPT/HCPCS: 29105; 73080; 99285

== ENCOUNTER 2023-02-25 11:41 | Observation (INO) | payer BC, SELFPAY ==
[2023-02-25] VITALS (9 sets, daily range): BP systolic 109–123; BP diastolic 61–70; PULSE 77–103; BMI 28.0
[2023-02-25 12:37] LABS: Appearance Urine Clear (Clear); Bilirubin Urine Negative (Negative); Blood Urine Negative (Negative); Color Urine Yellow (Yellow); Glucose Urine UA Negative (Negative); Ketones Urine Trace mg/dL (Negative); Leukocyte Esterase Ur Negative LEU/UL (Negative); Nitrate Urine Negative (Negative); Protein Urine Negative (Negative); Specific Grav Ur 1.014 (1.001-1.035); pH Urine 6.5 (5.0-9.0)
--- NOTE | 2023-02-25 12:56 | OBADM ---
This patient, Yasmin Vasquez, admitted to the OB room OB Post 117 for observation. Patient/family oriented to hospital policies and general routines including ID bracelet, bed and alarms, visiting hours, pain management, procedures, bathroom and other care routines, personal items, smoking policy, room service/diet, and visiting hours. Patient/Family are encouraged to report perceived risks to care and to ask questions if they do not understand what they are told or what they should do.
[2023-02-25 12:59] LABS: Add Urine Microscopic? NO
[2023-02-25] MEDS: TERBUTALINE SULFATE 1 MG/ML VIAL 0.25 MG SUB-Q (13:23)
--- NOTE | 2023-03-02 01:10 | PM.OBTRLD ---
OB - Triage/Final Diagnosis Visit Information Comments/Additional reasons for admission: I have assessed the risk for this patient, Yasmin Vasquez, and determined that she would benefit from observation care. Evaluation Laboratory results: Laboratory Tests 02/25/23 12:22 Urine Color Yellow Urine Appearance Clear Urine pH 6.5 Ur Specific [place] 1.014 Urine Protein Negative Urine Glucose (UA) Negative Urine Ketones Trace H Ur Blood (Man) Negative Urine Nitrate Negative Urine Bilirubin Negative Urine Urobilinogen 1.0 Leukocyte Esterase Rfl Negative Final Diagnosis (1) Vaginal discharge during : Code(s): O26.899 - Other specified related conditions, unspecified trimester; N89.8 - Other specified noninflammatory disorders of vagina Status: Acute
== END 2023-02-25 15:10 | disposition home or self-care (01) ==
PROVIDERS: Admitting Provider Obstetrics & Gynecology; PCP Family Medicine Adolescent Medicine; Visit Provider Obstetrics & Gynecology
DX: O26.892 Other specified pregnancy related conditions, second trimester (principal); N89.8 Other specified noninflammatory disorders of vagina; Z3A.28 28 weeks gestation of pregnancy
CPT/HCPCS: 81003; 84112; 96372; G0378; G0379; J3105

== ENCOUNTER 2023-03-20 11:46 | Observation (INO) | payer BC, SELFPAY ==
--- NOTE | ~2023-03-20 | US_ITS ---
US renal BI 03/20/2023 13:04 Procedure: Realtime transabdominal ultrasound of the kidneys and bladder. Indication: Kidney pain Comparison: No prior studies for comparison. Findings: Renal echotexture is normal bilaterally without hydronephrosis, contour deforming mass or r enal calculus. The right kidney measures 10.6 cm and left kidney measures 12.1 cm. No Doppler evidenc e of renal artery stenosis. Bladder within normal limits. Impression: 1: Unremarkable renal ultrasound. No stones, masses or hydronephrosis. Reviewed, dictated and finalized at location L. Impression: 1: Unremarkable renal ultrasound. No stones, masses or hydronephrosis.
[2023-03-20 12:05] VITALS: BMI 28.4
--- NOTE | 2023-03-20 12:05 | OBADM ---
This patient, Yasmin Vasquez, admitted to the OB room OB Post 116 for observation. Patient/family oriented to hospital policies and general routines including ID bracelet, bed and alarms, visiting hours, pain management, procedures, bathroom and other care routines, personal items, smoking policy, room service/diet, and visiting hours. Patient/Family are encouraged to report perceived risks to care and to ask questions if they do not understand what they are told or what they should do.
[2023-03-20 12:10] VITALS: BP 104/63; PULSE 81
[2023-03-20 12:15] VITALS: BP 101/64; PULSE 79; RESP 18; TEMP 36.6
--- NOTE | 2023-03-20 12:23 | PC.NURSE ---
1220- Dr. Zacarias Washington notified of patient status, orders received to draw CBC/CMP and kidney US.
[2023-03-20 12:27] LABS: Appearance Urine Turbid (Clear); Bacteria Urine 4+ /hpf; Bilirubin Urine Negative (Negative); Blood Urine Negative (Negative); Color Urine Yellow (Yellow); Glucose Urine UA Negative (Negative); Ketones Urine Negative (Negative); Leukocyte Esterase Ur 2+ LEU/UL (Negative); Nitrate Urine Negative (Negative); Protein Urine Trace mg/dL (Negative); Specific Grav Ur 1.019 (1.001-1.035); Squamous Epithelial Cell Urine Moderate /hpf (Few); WBC Urine 21-50 /hpf; pH Urine 6.5 (5.0-9.0)
[2023-03-20 12:35] LABS: Add Urine Microscopic? YES
[2023-03-20 12:43] LABS: Basophils Percent Auto 0.1 % (0.2-1.2); Eosinophils Absolute Auto 0.1 K/mm3 (0-0.3); Eosinophils Percent Auto 1.3 % (0-4.4); Hematocrit 35.4 % (37.0-47.0); Hemoglobin 11.7 g/dL (12.0-15.0); Immature Granulocyte Absolute 0.06 K/mm3 (0.00-0.031); Immature Granulocyte Percent A 0.8 % (0-0.5); Lymphocytes Absolute Auto 1.58 K/mm3 (0.9-3.2); Lymphocytes Percent Auto 20.6 % (18.3-44.2); Mean Corpuscular HGB Conc 33.1 g/dl (32-36); Mean Corpuscular Hemoglobin 31.1 pg (26-34); Mean Corpuscular Volume 94.1 fl (80-100); Mean Platelet Volume 10.2 fl (7.4-10.4); Monocytes Absolute Auto 0.7 K/mm3 (0.1-0.6); Monocytes Percent Auto 9.1 % (2.6-8.5); Neutrophils Absolute Auto 5.2 K/mm3 (1.3-6.7); Neutrophils Percent Auto 68.1 % (45.5-73.1); Platelet Count Result 184 k/mm3 (150-375); Red Blood Count 3.76 M/mm3 (4.2-5.4); Red Cell Distribution Width 13.1 % (11.5-14.5); White Blood Count 7.7 K/mm3 (4.5-10.0)
[2023-03-20 12:59] LABS: Alanine Aminotransferase 12 U/L (6-35); Albumin Level 3.3 g/dL (3.5-5.1); Alkaline Phosphatase 77 U/L (38-126); Anion Gap 6 mmol/L (8-16); Aspartate Amino Transferase 18 U/L (14-36); Bilirubin,Total 0.4 mg/dL (0.2-1.3); Blood Urea Nitrogen 4 mg/dL (7-17); Calcium 8.6 mg/dL (8.4-10.2); Carbon Dioxide 24 mmol/L (22-30); Chloride 105 mmol/L (98-107); Estimated CRCL calculation 173 ml/min; Estimated Glomerular Filt Rate > 60; Glucose 87 mg/dL (65-110); Potassium 4.3 mmol/L (3.4-5.0); Sodium 135 mmol/L (137-145)
--- NOTE | 2023-03-20 13:35 | PC.NURSE ---
Dr. Zacarias Washington notified of lab results and US. Start IV and give 1 liter bolus of LR and 1 gram of rocephin.
[2023-03-20] MEDS: LACTATED RINGERS 1,000 ML 999 ML IV CONT (13:48)
--- NOTE | 2023-03-20 15:05 | PC.NURSE ---
Dr. Zacarias Washington updated on patient status. Okay to discharge when fluids are done running.
[2023-03-20 16:03] VITALS: BP 104/63; PULSE 72
--- NOTE | 2023-03-21 12:48 | P.PNOB_ITS ---
OB - Triage/Final Diagnosis Visit Information Date of evaluation: 03/20/23 Reason for evaluation: other (Urinary tract infection) Comments/Additional reasons for admission: I have assessed the risk for this patient, Yasmin Vasquez, and determined that she would benefit from observation care. Evaluation Laboratory results: Laboratory Tests 03/20/23 03/20/23 12:00 12:26 WBC 7.7 RBC 3.76 L Hgb 11.7 L Hct 35.4 L MCV 94.1 MCH 31.1 MCHC 33.1 RDW 13.1 Plt Count 184 MPV 10.2 Immature Gran % (Auto) 0.8 H Neut % (Auto) 68.1 Lymph % (Auto) 20.6 [place] % (Auto) 9.1 H Eos % (Auto) 1.3 Baso % (Auto) 0.1 L Lymph # (Auto) 1.58 [place] # (Auto) 0.7 H Eos # (Auto) 0.1 Baso # (Auto) 0.0 Abs Immat Gran (auto) 0.06 H Absolute Neuts (auto) 5.2 Absolute Nucleated RBC 0.0 Nucleated RBC % 0.0 Sodium 135 L Potassium 4.3 Chloride 105 Carbon Dioxide 24 Anion Gap 6 L BUN 4 L D Creatinine 0.40 L Estim Creat Clear Calc 173 Estimated GFR > 60 Glucose 87 Calcium 8.6 Total Bilirubin 0.4 AST 18 ALT 12 Alkaline Phosphatase 77 Total Protein 6.0 L Albumin 3.3 L Urine Color Yellow Urine Appearance Turbid H Urine pH 6.5 Ur Specific [place] 1.019 Urine Protein Trace Urine Glucose (UA) Negative Urine Ketones Negative Ur Blood (Man) Negative Urine Nitrate Negative Urine Bilirubin Negative Urine Urobilinogen 1.0 Leukocyte Esterase Rfl 2+ H Urine RBC 6-10 H Urine WBC 21-50 H Ur Squamous Epith Cells Moderate Urine Bacteria 4+ H Urine Casts 3-5 Vital signs: Vital Signs - 24 hr 03/20/23 16:03 Pulse Rate 72 Blood Pressure [Left Arm] 104/63
== END 2023-03-20 16:07 | disposition home or self-care (01) ==
PROVIDERS: Admitting Provider Obstetrics & Gynecology; PCP Family Medicine Adolescent Medicine; Visit Provider Obstetrics & Gynecology
DX: O23.43 Unspecified infection of urinary tract in pregnancy, third trimester (principal); N39.0 Urinary tract infection, site not specified; Z3A.32 32 weeks gestation of pregnancy
CPT/HCPCS: 36415; 59025; 76775; 80053; 81001; 85025; 87086; 96374; G0378; J0696; J7120

== ENCOUNTER 2023-04-17 16:23 | Outpatient (CLI) | payer BC, SELFPAY ==
[2023-04-17 16:40] VITALS: BP 124/80; PULSE 97
--- NOTE | 2023-04-17 16:55 | PC.NURSE ---
Pt. here for PIH workup, states she feels like she is wet all the time and is requesting ROM plus test.
[2023-04-17 17:00] VITALS: BP 125/76; PULSE 83
[2023-04-17 17:02] LABS: Basophils Percent Auto 0.1 % (0.2-1.2); Eosinophils Absolute Auto 0.1 K/mm3 (0-0.3); Eosinophils Percent Auto 1.4 % (0-4.4); Hematocrit 34.4 % (37.0-47.0); Hemoglobin 11.6 g/dL (12.0-15.0); Immature Granulocyte Absolute 0.06 K/mm3 (0.00-0.031); Immature Granulocyte Percent A 0.8 % (0-0.5); Lymphocytes Absolute Auto 1.59 K/mm3 (0.9-3.2); Lymphocytes Percent Auto 21.7 % (18.3-44.2); Mean Corpuscular HGB Conc 33.7 g/dl (32-36); Mean Corpuscular Hemoglobin 30.4 pg (26-34); Mean Corpuscular Volume 90.1 fl (80-100); Mean Platelet Volume 10.7 fl (7.4-10.4); Monocytes Absolute Auto 0.5 K/mm3 (0.1-0.6); Monocytes Percent Auto 7.2 % (2.6-8.5); Neutrophils Percent Auto 68.8 % (45.5-73.1); Platelet Count Result 210 k/mm3 (150-375); Red Blood Count 3.82 M/mm3 (4.2-5.4); White Blood Count 7.3 K/mm3 (4.5-10.0)
[2023-04-17 17:14] LABS: Alanine Aminotransferase 16 U/L (6-35); Albumin Level 3.5 g/dL (3.5-5.1); Alkaline Phosphatase 111 U/L (38-126); Anion Gap 11 mmol/L (8-16); Aspartate Amino Transferase 20 U/L (14-36); Bilirubin,Total 0.6 mg/dL (0.2-1.3); Blood Urea Nitrogen 5 mg/dL (7-17); Carbon Dioxide 22 mmol/L (22-30); Chloride 105 mmol/L (98-107); Estimated Glomerular Filt Rate > 60; Glucose 120 mg/dL (65-110); Potassium 3.2 mmol/L (3.4-5.0); Sodium 138 mmol/L (137-145); Uric Acid 5.3 mg/dL (2.5-7.5)
[2023-04-17 17:15] VITALS: BP 119/76; PULSE 86
[2023-04-17 17:27] VITALS: TEMP 36.6
[2023-04-17 17:45] VITALS: BP 120/72; PULSE 92
[2023-04-17 17:59] LABS: Appearance Urine Cloudy (Clear); Bacteria Urine 1+ /hpf; Bilirubin Urine Negative (Negative); Blood Urine Negative (Negative); Color Urine Yellow (Yellow); Glucose Urine UA Negative (Negative); Ketones Urine Trace mg/dL (Negative); Leukocyte Esterase Ur 1+ LEU/UL (NEGATIVE); Nitrate Urine Negative (Negative); Non Pathogenic Casts 0-2; Protein Urine 1+ mg/dL (Negative); Specific Grav Ur 1.023 (1.001-1.035); Squamous Epithelial Cell Urine Moderate /hpf (Few)
[2023-04-17 18:00] LABS: Creatinine Urine 186.7 mg/dL; Total Protein Urine Random 27 mg/dL; Ur Ttl Prot Creatinine Ratio 0.14 mg/mg (0-0.20)
[2023-04-17 18:07] VITALS: BP 120/72; PULSE 83
[2023-04-17 18:09] LABS: Add Urine Microscopic? YES
== END 2023-04-17 18:05 | disposition home or self-care (01) ==
LOC: ANHOBOP 16:27 → ANHOBPP 16:27
PROVIDERS: PCP Family Medicine Adolescent Medicine; Visit Provider Obstetrics & Gynecology
DX: O13.9 Gestational [pregnancy-induced] hypertension without significant proteinuria, unspecified trimester (principal); Z3A.00 Weeks of gestation of pregnancy not specified
CPT/HCPCS: 36415; 59025; 80053; 81001; 82570; 84112; 84156; 84550; 85025; 87086; 99199

== ENCOUNTER 2023-04-21 12:00 | Observation (INO) | payer BC, SELFPAY ==
[2023-04-21 13:16] VITALS: BP 124/76; PULSE 86
[2023-04-21 13:31] VITALS: BP 124/77; PULSE 86
[2023-04-21 13:34] LABS: Basophils Percent Auto 0.1 % (0.2-1.2); Eosinophils Absolute Auto 0.1 K/mm3 (0-0.3); Eosinophils Percent Auto 1.4 % (0-4.4); Hematocrit 32.2 % (37.0-47.0); Hemoglobin 10.6 g/dL (12.0-15.0); Immature Granulocyte Absolute 0.06 K/mm3 (0.00-0.031); Immature Granulocyte Percent A 0.8 % (0-0.5); Lymphocytes Absolute Auto 1.67 K/mm3 (0.9-3.2); Lymphocytes Percent Auto 22.8 % (18.3-44.2); Mean Corpuscular HGB Conc 32.9 g/dl (32-36); Mean Corpuscular Hemoglobin 29.5 pg (26-34); Mean Corpuscular Volume 89.7 fl (80-100); Mean Platelet Volume 10.6 fl (7.4-10.4); Monocytes Absolute Auto 0.7 K/mm3 (0.1-0.6); Monocytes Percent Auto 9.1 % (2.6-8.5); Neutrophils Absolute Auto 4.8 K/mm3 (1.3-6.7); Neutrophils Percent Auto 65.8 % (45.5-73.1); Platelet Count Result 177 k/mm3 (150-375); Red Blood Count 3.59 M/mm3 (4.2-5.4); Red Cell Distribution Width 12.9 % (11.5-14.5); White Blood Count 7.3 K/mm3 (4.5-10.0)
[2023-04-21 13:40] VITALS: BMI 29.2
[2023-04-21 13:40] LABS: Appearance Urine Clear (Clear); Bacteria Urine None Seen /hpf; Bilirubin Urine Negative (Negative); Blood Urine 3+ (Negative); Color Urine Yellow (Yellow); Glucose Urine UA Negative (Negative); Ketones Urine 1+ mg/dL (Negative); Leukocyte Esterase Ur Negative LEU/UL (NEGATIVE); Nitrate Urine Negative (Negative); Non Pathogenic Casts 0-2; Protein Urine Negative (Negative); Specific Grav Ur 1.018 (1.001-1.035); Squamous Epithelial Cell Urine Occasional /hpf (Few); Urobilinogen Urine 0.2 mg/dL (<2.0); WBC Urine 0-5 /hpf (0-3); pH Urine 5.5 (5.0-9.0)
[2023-04-21 13:41] LABS: Creatinine Urine 75.6 mg/dL
--- NOTE | 2023-04-21 13:43 | OBADM ---
This patient, Yasmin Vasquez, admitted to the OB room Labor/Delivery/Recovery 105 for observation. Patient/family oriented to hospital policies and general routines including ID bracelet, bed and alarms, visiting hours, pain management, procedures, bathroom and other care routines, personal items, smoking policy, room service/diet, and visiting hours. Patient/Family are encouraged to report perceived risks to care and to ask questions if they do not understand what they are told or what they should do.
[2023-04-21 13:46] VITALS: BP 110/58; PULSE 88
[2023-04-21 13:46] LABS: Total Protein Urine Random < 5 mg/dL; Ur Ttl Prot Creatinine Ratio < 0.07 mg/mg (0-0.20)
[2023-04-21 13:48] LABS: Add Urine Microscopic? YES; Alanine Aminotransferase 14 U/L (6-35); Albumin Level 3.1 g/dL (3.5-5.1); Alkaline Phosphatase 110 U/L (38-126); Anion Gap 11 mmol/L (8-16); Aspartate Amino Transferase 19 U/L (14-36); Bilirubin,Total 0.4 mg/dL (0.2-1.3); Blood Urea Nitrogen 2 mg/dL (7-17); Calcium 8.6 mg/dL (8.4-10.2); Carbon Dioxide 18 mmol/L (22-30); Chloride 106 mmol/L (98-107); Estimated CRCL calculation 175 ml/min; Estimated Glomerular Filt Rate > 60; Glucose 109 mg/dL (65-110); Potassium 3.2 mmol/L (3.4-5.0); Sodium 135 mmol/L (137-145); Uric Acid 5.3 mg/dL (2.5-7.5)
--- NOTE | 2023-04-21 13:48 | PC.NURSE ---
Dr. Mix notified of FHT, SVE, vital signs, and patient's complaint of headache and blurry vision. Orders received to draw PI labs due to symptoms and some elevated BPs. Patient has already taken tylenol at 1100 this AM.
[2023-04-21 14:16] VITALS: BP 108/65; PULSE 83
[2023-04-21 14:28] LABS: HIV 1/2 Ab P24 Ag Result Negative (Negative)
[2023-04-21 14:30] VITALS: BP 107/63; PULSE 88
--- NOTE | 2023-04-21 14:39 | PC.NURSE ---
Dr. Mix updated on SVE, FHT, lab results and vital signs. Okay to discharge.
--- NOTE | 2023-05-15 08:05 | P.PNOB_ITS ---
OB - Triage/Final Diagnosis Visit Information Comments/Additional reasons for admission: I have assessed the risk for this patient, Yasmin Vasquez, and determined that she would benefit from observation care. Evaluation Laboratory results: Laboratory Tests 04/21/23 13:15 WBC 7.3 RBC 3.59 L Hgb 10.6 L Hct 32.2 L MCV 89.7 MCH 29.5 MCHC 32.9 RDW 12.9 Plt Count 177 MPV 10.6 H Immature Gran % (Auto) 0.8 H Neut % (Auto) 65.8 Lymph % (Auto) 22.8 [place] % (Auto) 9.1 H Eos % (Auto) 1.4 Baso % (Auto) 0.1 L Lymph # (Auto) 1.67 [place] # (Auto) 0.7 H Eos # (Auto) 0.1 Baso # (Auto) 0.0 Abs Immat Gran (auto) 0.06 H Absolute Neuts (auto) 4.8 Absolute Nucleated RBC 0.0 Nucleated RBC % 0.0 Sodium 135 L Potassium 3.2 L Chloride 106 Carbon Dioxide 18 L Anion Gap 11 BUN 2 L Creatinine 0.40 L Estim Creat Clear Calc 175 Estimated GFR > 60 Glucose 109 Uric Acid 5.3 Calcium 8.6 Total Bilirubin 0.4 AST 19 ALT 14 Alkaline Phosphatase 110 Total Protein 6.0 L Albumin 3.1 L Urine Color Yellow Urine Appearance Clear Urine pH 5.5 Ur Specific [place] 1.018 Urine Protein Negative Urine Glucose (UA) Negative Urine Ketones 1+ H Ur Blood (Man) 3+ H Urine Nitrate Negative Urine Bilirubin Negative Urine Urobilinogen 0.2 Ur Leukocyte Esterase Negative Urine RBC 3-5 H Urine WBC 0-5 Ur Squamous Epith Cells Occasional Urine Bacteria None seen Urine Casts 0-2 U Random Total Protein < 5 Urine Creatinine 75.6 Protein/Creat Ratio 2 < 0.07 HIV 1&2 Ab/P24 Ag 4thGn Negative Final Diagnosis (1) False labor: Code(s): O47.9 - False labor, unspecified Status: Acute
== END 2023-04-21 15:00 | disposition home or self-care (01) ==
PROVIDERS: Admitting Provider Obstetrics & Gynecology; PCP Family Medicine Adolescent Medicine; Visit Provider Obstetrics & Gynecology
DX: O47.03 False labor before 37 completed weeks of gestation, third trimester (principal); Z3A.36 36 weeks gestation of pregnancy; Z11.4 Encounter for screening for human immunodeficiency virus [HIV]
CPT/HCPCS: 36415; 80053; 81001; 82570; 84156; 84550; 85025; 86703; 87086; 87147; 87181; 87186; G0378; G0379; G0432

== ENCOUNTER 2023-04-26 20:20 | Inpatient (IN) | payer BC, SELFPAY ==
--- NOTE | 2023-04-26 20:02 | OBADM ---
This patient, Yasmin Vasquez, admitted to the OB room Labor/Delivery/Recovery 106 for observation. Patient/family oriented to hospital policies and general routines including ID bracelet, bed and alarms, visiting hours, pain management, procedures, bathroom and other care routines, personal items, smoking policy, room service/diet, and visiting hours. Patient/Family are encouraged to report perceived risks to care and to ask questions if they do not understand what they are told or what they should do.
[2023-04-26 20:20] VITALS: BP 139/91; PULSE 92
[2023-04-26 20:27] VITALS: TEMP 36.6
[2023-04-26 20:31] VITALS: BP 133/89; PULSE 84
[2023-04-27] VITALS (116 sets, daily range): BP systolic 92–169; BP diastolic 43–120; PULSE 33–158; RESP 16–18; TEMP 36.2–37.4; O2SAT 81–100; BMI 29.0
[2023-04-27] MEDS: LACTATED RINGERS 1,000 ML 999 ML IV CONT (00:10)
[2023-04-27] MEDS: fentaNYL CITRATE INJ (*CRX) 100 MCG/2 ML VIAL 50 MCG IV PUSH (00:15)
[2023-04-27 00:42] LABS: Basophils Percent Auto 0.1 % (0.2-1.2); Eosinophils Absolute Auto 0.1 K/mm3 (0-0.3); Eosinophils Percent Auto 1.3 % (0-4.4); Hematocrit 34.5 % (37.0-47.0); Hemoglobin 11.5 g/dL (12.0-15.0); Lymphocytes Absolute Auto 2.46 K/mm3 (0.9-3.2); Lymphocytes Percent Auto 25.3 % (18.3-44.2); Mean Corpuscular HGB Conc 33.3 g/dl (32-36); Mean Corpuscular Volume 90.1 fl (80-100); Mean Platelet Volume 10.7 fl (7.4-10.4); Monocytes Absolute Auto 0.9 K/mm3 (0.1-0.6); Monocytes Percent Auto 9.3 % (2.6-8.5); Neutrophils Absolute Auto 6.1 K/mm3 (1.3-6.7); Platelet Count Result 206 k/mm3 (150-375); Red Blood Count 3.83 M/mm3 (4.2-5.4); Red Cell Distribution Width 13.1 % (11.5-14.5); White Blood Count 9.7 K/mm3 (4.5-10.0)
[2023-04-27 00:49] LABS: Alanine Aminotransferase 11 U/L (6-35); Albumin Level 3.5 g/dL (3.5-5.1); Alkaline Phosphatase 132 U/L (38-126); Anion Gap 9 mmol/L (8-16); Aspartate Amino Transferase 19 U/L (14-36); Bilirubin,Total 0.5 mg/dL (0.2-1.3); Blood Urea Nitrogen 3 mg/dL (7-17); Calcium 9.3 mg/dL (8.4-10.2); Carbon Dioxide 21 mmol/L (22-30); Chloride 104 mmol/L (98-107); Estimated CRCL calculation 144 ml/min; Estimated Glomerular Filt Rate > 60; Glucose 98 mg/dL (65-110); Potassium 3.4 mmol/L (3.4-5.0); Sodium 134 mmol/L (137-145); Uric Acid 5.2 mg/dL (2.5-7.5)
--- NOTE | 2023-04-27 07:02 | PM.IMHP ---
H&P: HPI History of Present Illness Date/Time: 04/27/23 07:02 Chief Complaint: labor at term. Mild elevated blood pressure. Hypothyroidism Narrative: this is a 32-year-old 5 para 2 who is admitted for in active labor. She has a 10 week ultrasound confirmingDates which puts her at 38 weeks gestation. She is negative for group B strep PMFSH Past Medical History Medical History Constipation Generalized anxiety disorder Nausea Overweight (BMI 25.0-29.9) Surgical History Surgical History H/O laparoscopy Family History Family History Son Asthma Grandparent Depression Diabetes mellitus Heart disease Hypertension Mother Depression Father Depression Social History Social History Smoking status: Never smoker Second hand tobacco smoke exposure: No Alcohol intake: never Drinks per week: 1 Substance use: never Substance use type: does not use Living arrangements: with family Occupation/Education: occupation Gender identity (if verbalized by the patient): Female Sexual Orientation (if Verbalized by the Patient): Straight or Heterosexual Spiritual care concerns: No Agree to blood products: Yes Meds Home Medications and Allergies Home Medications Medication Instructions Recorded Confirmed Type cetirizine 10 mg tablet (Allergy 10 mg PO HS 12/23/20 04/27/23 History Relief (cetirizine)) levothyroxine 50 mcg tablet 50 mcg PO HS 09/11/22 04/27/23 History Allergies Allergy/AdvReac Type Severity Reaction Status Date / Time nitroglycerin AdvReac Loss of Verified 09/15/22 10:35 Consciousness Vital Signs Vital Signs - 24 hr 04/26/23 20:20 04/26/23 20:27 04/26/23 20:31 Temperature 97.8 F Pulse Rate 92 84 Blood Pressure 139/91 H 133/89 Oxygen Delivery 04/27/23 00:21 04/27/23 00:31 04/27/23 00:33 Temperature Pulse Rate 88 86 76 Blood Pressure 164/120 H 169/111 H 149/95 H Oxygen Delivery 04/27/23 00:46 04/27/23 01:01 04/27/23 01:17 Temperature Pulse Rate 73 68 79 Blood Pressure 121/75 117/72 155/95 H Oxygen Delivery 04/27/23 01:31 04/27/23 01:46 04/27/23 02:01 Temperature Pulse Rate 87 75 70 Blood Pressure 161/96 H 131/88 111/67 Oxygen Delivery 04/27/23 02:16 04/27/23 02:31 04/27/23 02:46 Temperature Pulse Rate 76 74 81 Blood Pressure 140/91 H 134/83 139/92 H Oxygen Delivery 04/27/23 03:01 04/27/23 03:16 04/27/23 04:24 Temperature Pulse Rate 78 80 82 Blood Pressure 132/93 H 130/97 H 140/90 Oxygen Delivery 04/27/23 04:31 04/27/23 04:46 04/27/23 05:01 Temperature Pulse Rate 82 75 74 Blood Pressure 135/93 H 129/81 126/76 Oxygen Delivery 04/27/23 05:16 04/27/23 05:31 04/27/23 05:46 Temperature Pulse Rate 85 83 77 Blood Pressure 132/86 126/84 125/81 Oxygen Delivery 04/27/23 06:01 04/27/23 06:16 04/27/23 06:31 Temperature Pulse Rate 75 83 77 Blood Pressure 127/83 143/94 H 138/92 H Oxygen Delivery 04/27/23 06:46 04/27/23 00:03 Temperature Pulse Rate 81 Blood Pressure 126/90 Oxygen Delivery Room Air Exam Const: General: cooperative, healthy appearing and comfortable Nutritional Appearance: average body habitus Orientation/consciousness: oriented to person, oriented to place and oriented to time HENMT: Head: normal to inspection Resp: Effort & Inspection: normal respiratory effort Cardio: Rate: regular rate Rhythm: regular rhythm Heart sounds: S1 normal heart sound present and S2 normal heart sound present GI: Inspection: normal to inspection ( gravid soft uterus) : External Female Exam: normal external appearance Speculum Exam - Vagina: normal appearance of the vagina Speculum Exam - Cervix: n
[2023-04-27] MEDS: LACTATED RINGERS 1,000 ML 125 ML IV CONT (07:13)
--- NOTE | 2023-04-27 08:19 | WPDANESEPP ---
Anes - Eval Pre Procedure Procedure: labor pain management Date/Time: 04/27/23 08:19 Surgeon: Zacarias Washington Preop Diagnosis: pain during labor Pre Op Diagnosis: Contractions Patient Data Age: 32 Gender: F Height: 1.68 m Weight: 81.5 kg Last Vital Signs Temp 98.2 F 04/27/23 07:00 Pulse 85 04/27/23 08:16 BP 137/80 04/27/23 08:16 Pulse Ox 97 04/27/23 08:17 O2 Del Method Room Air 04/27/23 00:03 Allergies Allergy/AdvReac Type Severity Reaction Status Date / Time nitroglycerin AdvReac Loss of Verified 09/15/22 10:35 Consciousness Home Medications Medication Instructions Recorded Confirmed Type cetirizine 10 mg tablet (Allergy 10 mg PO HS 12/23/20 04/27/23 History Relief (cetirizine)) levothyroxine 50 mcg tablet 50 mcg PO HS 09/11/22 04/27/23 History Laboratory Tests 04/27/23 04/27/23 00:32 07:11 WBC 9.7 K/mm3 (4.5-10.0) RBC 3.83 L M/mm3 (4.2-5.4) Hgb 11.5 L g/dL (12.0-15.0) Hct 34.5 L % (37.0-47.0) MCV 90.1 fl (80-100) MCH 30.0 pg (26-34) MCHC 33.3 g/dl (32-36) RDW 13.1 % (11.5-14.5) Plt Count 206 k/mm3 (150-375) MPV 10.7 H fl (7.4-10.4) Immature Gran % (Auto) 1.0 H % (0-0.5) Neut % (Auto) 63.0 % (45.5-73.1) Lymph % (Auto) 25.3 % (18.3-44.2) [place] % (Auto) 9.3 H % (2.6-8.5) Eos % (Auto) 1.3 % (0-4.4) Baso % (Auto) 0.1 L % (0.2-1.2) Lymph # (Auto) 2.46 K/mm3 (0.9-3.2) [place] # (Auto) 0.9 H K/mm3 (0.1-0.6) Eos # (Auto) 0.1 K/mm3 (0-0.3) Baso # (Auto) 0.0 K/mm3 (0.0-0.1) Abs Immat Gran (auto) 0.10 H K/mm3 (0.00-0.031) Absolute Neuts (auto) 6.1 K/mm3 (1.3-6.7) Absolute Nucleated RBC 0.0 K/mm3 (0.0-0.012) Nucleated RBC % 0.0 % (0.0-0.2) Sodium 134 L mmol/L (137-145) Potassium 3.4 mmol/L (3.4-5.0) Chloride 104 mmol/L (98-107) Carbon Dioxide 21 L mmol/L (22-30) Anion Gap 9 mmol/L (8-16) BUN 3 L mg/dL (7-17) Creatinine 0.50 L mg/dL (0.7-1.0) Estim Creat Clear Calc 144 ml/min Estimated GFR > 60 (59 - ) Glucose 98 mg/dL (65-110) Uric Acid 5.2 mg/dL (2.5-7.5) Calcium 9.3 mg/dL (8.4-10.2) Total Bilirubin 0.5 mg/dL (0.2-1.3) AST 19 U/L (14-36) ALT 11 U/L (6-35) Alkaline Phosphatase 132 H U/L (38-126) Total Protein 6.0 L g/dL (6.3-8.2) Albumin 3.5 g/dL (3.5-5.1) RPR Pending Blood Type O Positive Antibody Screen Negative : gestational age (edc 05/14/23) Patient hx anesthesia problems: none Family hx anesthesia problems: none Results Review: All pre-operative results and documents have been reviewed as part of the pre-operative evaluation. [facility] Past Medical History Medical History (Updated 04/27/23 @ 08:16 by Marilin Cui CRNA) Constipation Generalized anxiety disorder Nausea Overweight (BMI 25.0-29.9) Surgical History Surgical History H/O laparoscopy Family History Family History Son Asthma Grandparent Depression Diabetes mellitus Heart disease Hypertension Mother Depression Father Depression Social History Social History Smoking status: Never smoker Second hand tobacco smoke exposure: No Alcohol intake: never Drinks per week: 1 Substance use: never Substance use type: does not use Living arrangements: with family Occupation/Education: occupation Gender identity (if verbalized by the patient): Female Sexual Orientation (if Verbalized by the Patient): Straight or Heterosexual Spiritual care concerns: No Agree to blood products: Yes
--- NOTE | 2023-04-27 08:37 | LDADM ---
This patient, Yasmin Vasquez, was admitted to Labor/Delivery/Recovery 106 on 04/27/23 at 07:01. Plans for labor, pain management and were discussed with patient. Patient/family oriented to hospital policies and general routines including ID bracelet, bed and alarms, visiting hours, pain management, procedures, bathroom and other care routines, personal items, smoking policy, room service/diet and guest tray routines, infant security routines, and visiting hours. Patient/Family are encouraged to report perceived risks to care and to ask questions if they do not understand what they are told or what they should do. See OBIX for further documentation.
[2023-04-27] MEDS: OXYTOCIN 30 UNITS/NS 500 ML 30 UNITS/500 ML BAG 999 UNITS IV CONT (09:58)
--- NOTE | 2023-04-27 10:14 | P.PCNOB_ITS ---
OB - Vaginal Delivery Note Procedure Delivery date: 04/27/23 Events: Gestational Hypertension Induction method: None Delivery augmentation: Rupture of Membranes Delivery monitor: External FHT and External Uterine Route of delivery: Episiotomy description: None Laceration Description: None Quantitative Blood Loss (ml): 60 Anesthesia type: Epidural Disposition: Floor Complications: No immediate complications [place] Baby Date of : 04/27/23 Time of : 09:55 Weeks of gestation at delivery: 37 Infant gender: Female presentation: vertex position: Right Occiput Anterior Placenta delivery description: Spontaneous Cord Vessel Description: 3 Vessels score one minute: 8 score five minutes: 9
--- NOTE | 2023-04-27 10:16 | PM.DS ---
DS: Admitting Diagnosis Discharge Date 04/28/2023 Admitting Diagnosis Term /gestational hypertension DS: Discharge Diagnosis Discharge Diagnosis (1) Term : Code(s): Z34.90 - Encounter for supervision of normal , unspecified, unspecified trimester Status: Acute (2) Gestational hypertension: Code(s): O13.9 - Gestational [-induced] hypertension without significant proteinuria, unspecified trimester Status: Acute DS: Summary Hospital Course Reason for hospitalization: patient was admitted at term in active labor at 37 weeks with mild elevated blood pressures Hospital Course: patient underwent spontaneous vaginal delivery on 04/27/2023 at 9:55 a.m.. Her hospital course was unremarkable. Her blood pressure stabilized. She remained afebrile. She was up, voiding without difficulty, eating regular diet, ambulating, generally without complaints. Time Spent with Patient Time attestation: Total time spent providing and/or coordinating discharge services: Exam Const: General: cooperative, healthy appearing and comfortable Nutritional Appearance: average body habitus Orientation/consciousness: oriented to person, oriented to place and oriented to time Resp: Effort & Inspection: normal respiratory effort Cardio: Rate: regular rate Rhythm: regular rhythm Heart sounds: S1 normal heart sound present and S2 normal heart sound present GI: Inspection: normal to inspection ( Fundus firm below the umbilicus) DS: Data Data Completed and Pending Labs on day of discharge: Labs from last 24 hours 04/27/23 04/27/23 07:11 00:32 WBC 9.7 RBC 3.83 L Hgb 11.5 L Hct 34.5 L MCV 90.1 MCH 30.0 MCHC 33.3 RDW 13.1 Plt Count 206 MPV 10.7 H Immature Gran % (Auto) 1.0 H Neut % (Auto) 63.0 Lymph % (Auto) 25.3 [place] % (Auto) 9.3 H Eos % (Auto) 1.3 Baso % (Auto) 0.1 L Lymph # (Auto) 2.46 [place] # (Auto) 0.9 H Eos # (Auto) 0.1 Baso # (Auto) 0.0 Abs Immat Gran (auto) 0.10 H Absolute Neuts (auto) 6.1 Absolute Nucleated RBC 0.0 Nucleated RBC % 0.0 Sodium 134 L Potassium 3.4 Chloride 104 Carbon Dioxide 21 L Anion Gap 9 BUN 3 L Creatinine 0.50 L Estim Creat Clear Calc 144 Estimated GFR > 60 Glucose 98 Uric Acid 5.2 Calcium 9.3 Total Bilirubin 0.5 AST 19 ALT 11 Alkaline Phosphatase 132 H Total Protein 6.0 L Albumin 3.5 RPR Pending Blood Type O Positive Antibody Screen Negative Discharge Plan Discharge Attending physician on discharge: Link Chew Discharging Clinician: Link Chew Patient Disposition: Home, Self-Care Activity: may shower and pelvic rest Diet: heart healthy Wound Care Instructions: follow printed instructions Patient Instructions: Antibiotic Form Stand Alone Forms: General Discharge Information Follow-up/Referrals: Link Chew MD [Physician] - Discharge Medications: No Action cetirizine [Allergy Relief (cetirizine)] 10 mg tablet 10 mg PO HS levothyroxine 50 mcg Tablet 50 mcg PO HS Date of admission: 04/27/23 07:01 Primary Care Provider: Boby Schmidt Admitting Provider: Link Chew Attending physician on admission: Link Chew Condition: Stable
[2023-04-27] MEDS: OXYTOCIN 30 UNITS/NS 500 ML 30 UNITS/500 ML BAG 125 UNITS IV CONT (10:31)
[2023-04-27] MEDS: BENZOCAINE 20% AER SPR (*SP) 56 GM CAN 1 SPRAY TOPICAL (12:34)
[2023-04-27] MEDS: WITCH HAZEL 40 PADS 1 PAD TOPICAL (12:34)
--- NOTE | 2023-04-27 12:50 | OBPPTRN ---
Patient transferred to post room #279 via wheelchair. Support person present. Oriented to unit, room, information board, rooming in, admission packet and security measures. Patient verbalizes understanding.
[2023-04-27 14:01] LABS: Rapid Plasma Reagin Non-Reactive (NonReactive)
[2023-04-27] MEDS: IBUPROFEN 600 MG TABLET PO (18:11)
[2023-04-27] MEDS: ACETAMINOPHEN 325 MG TABLET 650 MG PO (22:05)
[2023-04-28] VITALS (7 sets, daily range): BP systolic 124–139; BP diastolic 81–95; PULSE 65–91; RESP 18; TEMP 36.4–37.3; O2SAT 97–99
[2023-04-28] MEDS: IBUPROFEN 600 MG TABLET PO ×2 (04:35→14:25)
[2023-04-28 04:51] LABS: Hematocrit 31.5 % (37.0-47.0); Hemoglobin 10.4 g/dL (12.0-15.0)
--- NOTE | 2023-04-28 08:17 | PM.OBPNVD ---
OB - PN: Subj Subjective Date/time seen: 04/28/23 08:17 Patient comments: no complaints and pain well controlled baby status: doing well and nursing well OB - PN: Obj Data Labs 04/28/23 04:37 04/27/23 00:32 Labs: Laboratory Results - last 24 hr 04/27/23 04/28/23 07:11 04:37 Hgb 10.4 L Hct 31.5 L RPR Non-reactive Antibody Screen Negative OB - PN A/P Plan day: 1 Plan: routine care, discharge home and follow up 6 weeks Time Spent With Patient Time: Total time spent is greater than 50% in coordination of care (as documented) at patient's floor/unit and/or counseling patient: Time with patient: less than 15 minutes Exam Const: General: cooperative, healthy appearing and comfortable Nutritional Appearance: average body habitus Orientation/consciousness: oriented to person, oriented to place and oriented to time Resp: Effort & Inspection: normal respiratory effort Cardio: Rate: regular rate Rhythm: regular rhythm Heart sounds: S1 normal heart sound present and S2 normal heart sound present GI: Inspection: normal to inspection
[2023-04-28] MEDS: TETANUS,DIPHTHERIA,AC PERTUSSIS ADULT (0.5 ML) BOOSTRIX IM (13:38)
--- NOTE | 2023-04-28 13:54 | WPDANLDPN2 ---
Anes-Prog Note L&D Date/Time: 04/28/23 13:54 Comfortable throughout: labor and delivery Neuraxial method: epidural Epidural/Spinal procedure site: clean & non-tender Neuro status: Neuro function grossly intact. Cardiovascular status: normal Respiratory status: normal Airway patency: baseline Mental status: baseline Post-Op hydration status: normal Vital Signs: Last Vital Signs Temp 36.4 C 04/28/23 10:07 Pulse 70 04/28/23 10:07 Resp 18 04/28/23 10:07 BP 138/94 H 04/28/23 12:15 Pulse Ox 99 04/28/23 10:07 O2 Del Method Room Air 04/28/23 10:07 Pain score (VAS): 3 I/O: Intake & Output 04/27/23 04/28/23 04/28/23 23:59 07:59 15:59 Intake Total 300 960 Output Total 700 2300 Balance -400 -1340 Post-procedural complaints: none Patient feedback: Patient satisfied with anesthetic care.
--- NOTE | 2023-04-28 14:00 | PC.NURSE ---
Breast pump provided due to maternal preference. Instructions given on cleaning, care, usage, that there should be no pain, pumping schedule for milk production, collection, and storage of human milk. Patient was assessed for correct placement, flange size, to pump for comfort and nipple stretching/stimulation for adequate milk production every 3 hours (8 times in 24 hours) 1-2 times at night.
[2023-04-28] MEDS: DOCUSATE SODIUM 100 MG CAPSULE PO (16:41)
[2023-04-29] MEDS: IBUPROFEN 600 MG TABLET PO ×2 (01:15→08:58)
[2023-04-29 08:55] VITALS: BP 124/92; PULSE 74; RESP 16; TEMP 36.8; O2SAT 99
[2023-04-29] MEDS: MULTIVIT/MIN/PREN/FOL AC/IRON TABLET 1 TAB PO (08:58)
[2023-04-29] MEDS: DOCUSATE SODIUM 100 MG CAPSULE PO (08:58)
[2023-04-29] MEDS: MEASLES,MUMPS,RUBELLA VACCINE 0.5 ML VIAL SUB-Q (09:03)
[2023-04-30 16:12] VITALS: BP 148/86; PULSE 84; RESP 18; TEMP 36.9; O2SAT 100
== END 2023-04-29 12:15 | disposition home or self-care (01) | DRG 807 ==
LOC: ANHLDR 04-27 10:18 → ANHOB2 04-29 09:49 → ANHLDR 05-01 07:42 → ANHOB2 05-01 07:42
PROVIDERS: Admitting Provider Obstetrics & Gynecology; PCP Family Medicine Adolescent Medicine; Visit Provider Obstetrics & Gynecology
DX: O13.4 Gestational [pregnancy-induced] hypertension without significant proteinuria, complicating childbirth (principal); Z37.0 Single live birth; O99.284 Endocrine, nutritional and metabolic diseases complicating childbirth; E03.9 Hypothyroidism, unspecified; Z3A.37 37 weeks gestation of pregnancy; Z23 Encounter for immunization
CPT/HCPCS: 36415; 80053; 84112; 84550; 85014; 85018; 85025; 86592; 86850; 86900; 86901; 90471; 90686; 90710; 90715; 96374; A9270; G0008; G0378; G0379; J2590; J2795; J3010; J7120

== ENCOUNTER 2023-05-24 08:50 | Emergency (ER) | payer BC, SELFPAY ==
[2023-05-24] VITALS (20 sets, daily range): BP systolic 120–155; BP diastolic 78–98; PULSE 72–85; RESP 12–17; TEMP 36.3–36.7; O2SAT 94–100
--- NOTE | ~2023-05-24 | CT_ITS ---
EXAMINATION: CT abdomen pelvis wo con DATE: 05/24/2023 09:26 INDICATION: Upper abdominal pain. TECHNIQUE: Computed tomography (CT) of the abdomen and pelvis was performed without intravenous contr ast. The dose-length product was 425.72 mGy-cm. Automated exposure control and iterative reconstructi on technique were employed. COMPARISON: CT dated 07/14/2021. FINDINGS: Lung bases are unremarkable. Heart size normal. No significant pleural or pericardial effus ion. Enlarged uterus. Nonobstructive bowel gas pattern. No significant vascular abnormality. No lymph adenopathy. Small fat-containing inguinal hernias. Gallbladder is moderately distended. The liver, sp yunier, pancreas, adrenal glands are unremarkable. There are nonobstructing bilateral renal stones. No hydronephrosis. IMPRESSION: 1. Nonobstructing bilateral nephrolithiasis. 2: Letter gallbladder distention, nonspecific. 3: Enlarged uterus. Reviewed, dictated and finalized at location L. INSTALLATION SUPERVISOR
--- NOTE | ~2023-05-24 | US_ITS ---
EXAMINATION: US right upper quadrant DATE: 05/24/2023 09:59 INDICATION: Pancreatitis and gallbladder dilation on prior CT TECHNIQUE: Multiple grayscale and Doppler ultrasound images of the abdomen were obtained. COMPARISON: CT dated 05/24/2023 FINDINGS: The pancreatic head and body are normal in appearance. The pancreatic tail is not visualized. Liver has normal echogenicity and contour, with a smooth surface. No liver lesion identified. No intrahepat ic biliary duct dilation suspected. Portal venous flow was seen in the hepatopetal, normal direction and has normal Doppler waveform. The gallbladder is normal in appearance measuring up to 4.1 cm in ma ximal diameter with no wall thickening. There are multiple small shadowing gallstones along the depen dent aspect of the gallbladder. The common bile duct measures 5 mm, which is normal. Sonographic Murp hy sign was reported as positive by the facilities manager. IMPRESSION: 1. Cholelithiasis with positive sonographic Ch's sign but without abnormal dilation of the gallbl adder or wall thickening which is equivocal for acute cholecystitis. Consider HIDA scan for further e valuation. Reviewed, dictated and finalized at location A. LY CHAIN TECHNICIAN IMPRESSION: 1. Cholelithiasis with positive sonographic Ch's sign but without abnormal dilation of the gallbladder or wall thickening which is equivocal for acute cho lecystitis. Consider HIDA scan for further evaluation.
--- NOTE | 2023-05-24 09:02 | ED.ABDPAIN ---
HPI - Abdominal Pain General Chief Complaint: Abdominal Pain Stated Complaint: lower back & stomach pain Time Seen by Provider: 05/24/23 08:55 Source: patient Mode of arrival: ambulatory Limitations: no limitations History of Present Illness HPI narrative: Patient is a 32-year-old female with acute onset of abdominal pain this morning. Her pain is in the mid epigastric area. Significantly she had a delivery 4 weeks ago. MD elicited complaint: abdominal pain Pertinent past history: none Onset (ago): hour(s) Pain Consistency: constant Location: epigastric and RUQ Severity: moderate Pain scale (0-10): 5 Quality: cramping and sharp Radiation: RUQ Migration to: no migration Exacerbating factors: nothing Relieving factors: nothing Associated symptoms: denies other symptoms Related Data Home Medications Medication Instructions Recorded Confirmed cetirizine 10 mg tablet (Allergy 10 mg PO HS 12/23/20 05/24/23 Relief (cetirizine)) levothyroxine 50 mcg tablet 50 mcg PO HS 09/11/22 05/24/23 Allergies Allergy/AdvReac Type Severity Reaction Status Date / Time nitroglycerin AdvReac Loss of Verified 05/24/23 08:58 Consciousness Review of Systems Review of Systems: All systems reviewed & are unremarkable except as noted in HPI and below Constitutional: Constitutional: Reports no additional constitutional complaints Eyes: Eyes: Reports no additional eye complaints ENT: Reports system reviewed and no additional complaints, except as documented Cardiovascular: Cardiovascular: Reports no additional cardiovascular complaints Respiratory: Respiratory: Reports no additional respiratory complaints Gastrointestinal: Gastrointestinal: Reports no additional gastrointestinal complaints Genitourinary: Genitourinary: Reports no additional female genitourinary complaints Musculoskeletal: Musculoskeletal: Reports no additional musculoskeletal complaints Integumentary/Breasts: Skin/Breast: Reports system reviewed and no additional complaints, except as docu Neurologic: Reports system reviewed and no additional complaints, except as documented Psychiatric: Psychiatric: Reports no additional psychiatric complaints Endocrine: Endocrine: Reports no additional endocrine complaints Hematologic/Lymphatic: Hematologic/Lymphatic: Reports no additional hematologic/lymphatic complaints Allergic/Immunologic: Allergic/Immunologic: Reports no additional allergic/immunologic complaints PMFSH Past Medical History Medical History Constipation Generalized anxiety disorder Nausea Overweight (BMI 25.0-29.9) Surgical History Surgical History H/O laparoscopy Family History Family History Son Asthma Grandparent Depression Diabetes mellitus Heart disease Hypertension Mother Depression Father Depression Social History Social History Smoking status: Never smoker Second hand tobacco smoke exposure: No Alcohol intake: never Drinks per week: 1 Substance use: never Substance use type: does not use Lack of Transportation: No Lack of Food: Never True Current Housing: I Have Housing Concerned About Future Housing: No Difficulty Paying Gas/Electric Bills: No Difficulty Paying for Meds: No Currently Unemployed: No Education: Associate Degree Difficulty w/ Childcare or Family Care: No Living arrangements: with family Occupation/Education: occupation Gender identity (if verbalized by the patient): Female Sexual Orientation (if Verbalized by the Patient): Straight or Heterosexual Spiritual care concerns: No Agree to blood products: Yes Exam Const: General: healthy appearing and no acute distress Nutritional Appearance: well nourished HENMT:
[2023-05-24 09:16] LABS: Basophils Absolute Auto 0.01 K/mm3 (0.00-0.10); Basophils Percent Auto 0.2 % (0.0-1.0); Eosinophils Absolute Auto 0.09 K/mm3 (0.02-0.50); Eosinophils Percent Auto 1.6 % (1.0-6.0); Hematocrit 38.9 % (35.0-49.0); Hemoglobin 12.5 g/dL (12.0-15.0); Immature Granulocyte Absolute 0.03 K/mm3 (0.00-0.00); Immature Granulocyte Percent A 0.5 % (0.0-0.0); Lymphocytes Percent Auto 22.7 % (18.0-42.0); Mean Corpuscular HGB Conc 32.1 g/dL (32.0-36.0); Mean Corpuscular Hemoglobin 28.6 pg (27.0-31.0); Mean Platelet Volume 10.4 fl (9.2-11.8); Monocytes Absolute Auto 0.51 K/mm3 (0.10-0.90); Monocytes Percent Auto 8.9 % (2.0-11.0); Neutrophils Absolute Auto 3.8 K/mm3 (1.7-7.2); Neutrophils Percent Auto 66.1 % (50.0-70.0); Platelet Count Result 217 K/mm3 (150-420); Red Blood Count 4.37 M/mm3 (4.20-5.40); Red Cell Distribution Width 12.5 % (11.6-14.4); White Blood Count 5.7 K/mm3 (4.8-10.8)
[2023-05-24 09:37] LABS: Alanine Aminotransferase 192 U/L (14-59); Albumin Level 3.6 g/dL (3.4-5.0); Alkaline Phosphatase 130 U/L (46-116); Anion Gap 3 mmol/L (8-16); Aspartate Amino Transferase 257 U/L (15-37); Bilirubin,Total 0.7 mg/dL (0.00-1.00); Blood Urea Nitrogen 11 mg/dL (7-18); Carbon Dioxide 34 mmol/L (21-32); Chloride 103 mmol/L (98-108); Estimated CRCL calculation 78 ml/min; Estimated Glomerular Filt Rate > 60; Glucose 89 mg/dL (70-99); Lipase 216 U/L (16-77); Osmolality Calculated 288 mOsm/kg (285-295); Sodium 140 mmol/L (136-145); Total Protein 6.8 g/dL (6.4-8.2)
[2023-05-24 09:47] LABS: Partial Thromboplastin Time 26.2 SEC (23.90-30.70); Prothrombin Time 10.8 Seconds (9.50-12.10)
--- NOTE | 2023-05-24 09:49 | PC.NURSE ---
Patient taken down to ultrasound.
--- NOTE | 2023-05-24 10:01 | PC.NURSE ---
Patient back in room from ultrasound.
[2023-05-24] MEDS: KETOROLAC (*BKC) 60 MG/2 ML VIAL IM (10:05)
[2023-05-24 10:50] LABS: Appearance Urine Cloudy (Clear); Bilirubin Urine Negative (Negative); Blood Urine 3+ (Negative); Color Urine Light Yellow (Yellow); Glucose Urine UA Negative (Negative); Ketones Urine Negative (Negative); Leukocyte Esterase Ur 2+ LEU/UL (Negative); Nitrate Urine Negative (Negative); Pregnancy On Board Control Positive; Protein Urine Trace (Negative); Urine Pregnancy Test Negative; pH Urine 7.5 (5.0-8.0)
[2023-05-24 10:57] LABS: Add Urine Microscopic? YES
[2023-05-24 10:58] LABS: Amorphous Sediment Urine Present; Bacteria Urine Trace /hpf; Squamous Epithelial Cell Urine Few /hpf (Few)
[2023-05-24] MEDS: CIPROFLOXACIN 500 MG TAB PO (12:37)
--- NOTE | 2023-05-27 13:16 | PC.NURSE ---
final urine culture reviewed. >100,000 E. coli. report shows sensitivity to Cipro. pt prescribed Cipro at discharge. no change in plan of care.
== END 2023-05-24 12:40 | disposition home or self-care (01) ==
PROVIDERS: Emergency Provider Emergency Medicine; PCP Family Medicine Adolescent Medicine
DX: K82.9 Disease of gallbladder, unspecified (principal); N30.01 Acute cystitis with hematuria
CPT/HCPCS: 36415; 74176; 76705; 80053; 81001; 81025; 83690; 85025; 85610; 85730; 87077; 87086; 87088; 87186; 96372; 99284; A9270; J1885

== ENCOUNTER 2023-06-11 16:49 | Emergency (ER) | payer BC, SELFPAY ==
[2023-06-11 16:57] VITALS: BP 125/94; PULSE 83; RESP 16; TEMP 36.8; O2SAT 100
--- NOTE | 2023-06-11 17:11 | ED.URI ---
HPI - URI/Sore Throat General Chief Complaint: Upper Respiratory Infection Stated Complaint: Strep Symptoms Time Seen by Provider: 06/11/23 17:12 Source: patient, RN notes reviewed and old records reviewed Mode of arrival: ambulatory Limitations: no limitations History of Present Illness HPI Narrative: 33 year old female who presents to express care with complaints of sore throat since yesterday hoarseness with dry cough and fever up to 100.7F Patient reports that she had a baby on April 27 and was doing well till on the she developed acute right upper abdominal pain and went to the ED to discover she has gall stones. Patient is scheduled to have laparoscopic gall bladder surgery next Sunday. Patient reports that she has history of strep throat in the past, and some seasonal allergies and has been taking Tylenol and also Zyrtec for her symptoms. Patient reports pain with swallowing, dry cough and hoarseness, some post nasal discharge. MD elicited complaint: cough, sore throat, rhinorrhea, nasal congestion and other Pertinent past history: other (strep throat) Onset (ago): day(s) (day 2 of symptoms) Consistency: progressively worsening Pain scale (0-10): 2 Description of mucous: clear Able to tolerate fluids by mouth: Yes Exacerbating factors: swallowing Treatments prior to arrival: acetaminophen and other (Zyrtec) Related Data Home Medications Medication Instructions Recorded Confirmed cetirizine 10 mg tablet (Allergy 10 mg PO HS 12/23/20 06/12/23 Relief (cetirizine)) levothyroxine 50 mcg tablet 50 mcg PO HS 09/11/22 06/12/23 vitamins no.159-iron 1 tablet PO DAILY 06/12/23 06/12/23 fumarate 28 mg-folic acid 800 mcg tablet ( Vitamin) Allergies Allergy/AdvReac Type Severity Reaction Status Date / Time nitroglycerin AdvReac Loss of Verified 06/12/23 12:11 Consciousness Review of Systems Review of Systems: CONSTITUTIONAL: Reports malaise, chills, sweats, or fever. EYES: Denies visual changes, redness, or discharge. ENT: Reports rhinorrhea, congestion, sinus pain, otalgia and sore throat. CARDIOVASCULAR: Denies chest pain, palpitations, or edema. RESPIRATORY: Reports cough.? Denies dyspnea. GASTROINTESTINAL: Denies abdominal pain, nausea, vomiting, diarrhea SKIN: Denies rash or itching. MUSCULOSKELETAL: Denies myalgia. NEUROLOGIC: Denies headache. All systems reviewed & are unremarkable except as noted in HPI and below PMFSH Past Medical History Medical History (Updated 06/13/23 @ 11:09 by Ember Giraldo NP) Chronic cholecystitis Constipation Depression Generalized anxiety disorder Hyperthyroidism Kidney stone Nausea Overweight (BMI 25.0-29.9) Surgical History Surgical History H/O laparoscopy History of ear surgery Family History Family History Son Asthma Grandparent Depression Diabetes mellitus Heart disease Hypertension Mother Depression Father Depression Social History Social History Smoking status: Never smoker Second hand tobacco smoke exposure: No Alcohol intake: never Drinks per week: 1 Substance use: never Substance use type: does not use Lack of Transportation: No Lack of Food: Never True Current Housing: I Have Housing Concerned About Future Housing: No Difficulty Paying Gas/Electric Bills: No Difficulty Paying for Meds: No Currently Unemployed: No Education: Associate Degree Difficulty w/ Childcare or Family Care: No Living arrangements: with family Occupation/Education: occupation Gender identity (if verbalized by the patient): Female Sexual Orientation (if Verbalized by the Patient): Straight or Heterosexual Spiritual care concerns: No Agree to blood products: Yes Comments At time of signature
== END 2023-06-11 17:33 | disposition home or self-care (01) ==
PROVIDERS: Emergency Provider Registered Nurse; PCP Family Medicine Adolescent Medicine
DX: J02.9 Acute pharyngitis, unspecified (principal); E05.90 Thyrotoxicosis, unspecified without thyrotoxic crisis or storm
CPT/HCPCS: 87081; 87880; 99213; G0463

== ENCOUNTER 2023-06-13 10:00 | Outpatient (CLI) | payer BC, SELFPAY ==
[2023-06-13 10:41] LABS: Alanine Aminotransferase 255 U/L (6-35); Albumin Level 4.4 g/dL (3.5-5.1); Alkaline Phosphatase 111 U/L (38-126); Amylase 114 U/L (30-110); Aspartate Amino Transferase 178 U/L (14-36); Bilirubin,Total 0.8 mg/dL (0.2-1.3); Lipase 116 U/L (23-300)
== END 2023-06-13 10:01 | disposition home or self-care (01) ==
PROVIDERS: PCP Family Medicine Adolescent Medicine; Visit Provider Surgery
DX: Z01.818 Encounter for other preprocedural examination (principal); K81.1 Chronic cholecystitis
CPT/HCPCS: 36415; 80076; 82150; 83690

== ENCOUNTER 2023-06-20 01:38 | Day surgery (SDC) | payer BC, SELFPAY ==
[2023-06-12 12:12] VITALS: BMI 25.8
--- NOTE | 2023-06-12 12:18 | PC.NURSE ---
Report to the Outpatient Waiting Room, entrance under the green pavilion located off [facility], at time 11:30 on date 06/20/23. Planned Procedure Time: 1:30. Time changes happen often and if your time is changed the preop area will call you the afternoon before. - You and your visitor will be asked to self-screen and do not enter if you have any COVID symptoms. - A mask is optional within the hospital at this time. Patients may have clear liquids (water, carbonated beverages, clear teas, apple juice) until 3 hours prior to surgery (10:30) with a maximum of 20 ounces. - No food from midnight until time of surgery Take the following medications with a SIP of water the morning of surgery: ANTIBIOTIC (IF STILL TAKING) DO NOT STOP ANY OF YOUR OTHER PRESCRIPTION MEDICATIONS PRIOR TO SURGERY ?EXCEPT THE FOLLOWING Medications to discontinue per physician: VITAMINS/SUPPLEMENTS Date to take last dose: 06/16/23 Please no make-up, nail maori, hairspray, perfume, deodorant, or body powder the day of surgery. No jewelry (including any body piercings) or valuables the day of surgery, leave them at home. Please take a shower or bath the night before, or the morning of, surgery with an antibacterial soap. Wear comfortable, loose fitting clothing. - Jewelry must be removed prior to entering the operating room. Rings and piercings that are not removed may be cut off. - The hospital will not accept responsibility for valuables. - Please leave all valuables, including medications, at home the day of surgery. If you are going home after surgery, a licensed chair car driver must drive you home. - NO public transportation without another adult if you receive anesthesia. - We recommend that an adult stay with you for 24 hours following discharge. - We also recommend that you do not drive, make important decision, drink alcoholic beverages, or take any drugs that were not prescribed by your health care provider for at least 24 hours after your discharge time. Follow any additional instructions given to you from your surgeon. If you or anyone in your household have experienced Covid symptoms in the past week, please notify your surgeon or the nurse liaison at the phone number below for possible testing. Telephone instructions given to PT - HAMZAH BACH and asked if any additional questions and then verbalized understanding. Patient advised to call surgeon office or pre surgery nurse liaison [phone] if any additional questions.
--- NOTE | 2023-06-18 08:05 | PM.IMHP ---
H&P: HPI History of Present Illness Date/Time: 06/18/23 08:05 Chief Complaint: Cholecystitis desires permanent sterilization Narrative: this is 33-year-old multiparous female admitted for laparoscopic cholecystectomy the permanent sterilization. She opts for permanent irreversible sterilization. She was offered pills, patches injections long-term implants. In decides upon permanent sterilization risks and para benefits reviewed. PMFSH Past Medical History Medical History (Updated 06/18/23 @ 08:08 by Link Washington MD) Chronic cholecystitis Constipation Depression Generalized anxiety disorder Hyperthyroidism Kidney stone Nausea Overweight (BMI 25.0-29.9) Surgical History Surgical History H/O laparoscopy History of ear surgery Family History Family History Son Asthma Grandparent Depression Diabetes mellitus Heart disease Hypertension Mother Depression Father Depression Social History Social History Smoking status: Never smoker Second hand tobacco smoke exposure: No Alcohol intake: never Drinks per week: 1 Substance use: never Substance use type: does not use Lack of Transportation: No Lack of Food: Never True Current Housing: I Have Housing Concerned About Future Housing: No Difficulty Paying Gas/Electric Bills: No Difficulty Paying for Meds: No Currently Unemployed: No Education: Associate Degree Difficulty w/ Childcare or Family Care: No Living arrangements: with family Occupation/Education: occupation Gender identity (if verbalized by the patient): Female Sexual Orientation (if Verbalized by the Patient): Straight or Heterosexual Spiritual care concerns: No Agree to blood products: Yes Meds Home Medications and Allergies Home Medications Medication Instructions Recorded Confirmed Type cetirizine 10 mg tablet (Allergy 10 mg PO HS 12/23/20 06/12/23 History Relief (cetirizine)) levothyroxine 50 mcg tablet 50 mcg PO HS 09/11/22 06/12/23 History amoxicillin 875 mg tablet 875 mg PO Q12H #20 tabs 06/11/23 06/12/23 Rx benzonatate 200 mg capsule 200 mg PO TID PRN cough #20 caps 06/11/23 06/12/23 Rx vitamins no.159-iron 1 tablet PO DAILY 06/12/23 06/12/23 History fumarate 28 mg-folic acid 800 mcg tablet ( Vitamin) Allergies Allergy/AdvReac Type Severity Reaction Status Date / Time nitroglycerin AdvReac Loss of Verified 06/12/23 12:11 Consciousness Exam Const: General: cooperative, healthy appearing and comfortable Nutritional Appearance: average body habitus Orientation/consciousness: oriented to person, oriented to place and oriented to time HENMT: Head: normal to inspection Resp: Effort & Inspection: normal respiratory effort Cardio: Rate: regular rate Rhythm: regular rhythm Heart sounds: S1 normal heart sound present and S2 normal heart sound present GI: Inspection: normal to inspection : External Female Exam: normal external appearance Speculum Exam - Vagina: normal appearance of the vagina Speculum Exam - Cervix: normal appearance of the cervix Bimanual exam- vagina & uterus: non-tender Bimanual Exam- Adnexa, other: normal adnexae Assessment and Plan Assessment and plan (1) Sterilization: Code(s): Z30.2 - Encounter for sterilization Status: Acute Plan laparoscopic bilateral tubal ligation
--- NOTE | 2023-06-19 12:28 | WPDANESEPPF ---
Anes - Initial Pre Proc Eval Procedure: Operation Date: 06/20/23 13:30 Proposed Procedures p Laparoscopic Cholecystectomy - Saranya Busby MD s Laparoscopic Bilateral Tubal Sterilization with Rings - Link Washington MD Date/Time: 06/19/23 12:28 Surgeon: Saranya Busby MD Pre Op Diagnosis: chronic cholecystitis, sterilization Patient Data Age: 33 Gender: F Height: 1.68 m Weight: 72.7 kg Allergies Allergy/AdvReac Type Severity Reaction Status Date / Time nitroglycerin AdvReac Loss of Verified 06/12/23 12:11 Consciousness Home Medications Medication Instructions Recorded Confirmed Type cetirizine 10 mg tablet (Allergy 10 mg PO HS 12/23/20 06/12/23 History Relief (cetirizine)) levothyroxine 50 mcg tablet 50 mcg PO HS 09/11/22 06/12/23 History amoxicillin 875 mg tablet 875 mg PO Q12H #20 tabs 06/11/23 06/12/23 Rx benzonatate 200 mg capsule 200 mg PO TID PRN cough #20 caps 06/11/23 06/12/23 Rx vitamins no.159-iron 1 tablet PO DAILY 06/12/23 06/12/23 History fumarate 28 mg-folic acid 800 mcg tablet ( Vitamin) Patient hx anesthesia problems: none Family hx anesthesia problems: none Results Review: All pre-operative results and documents have been reviewed as part of the pre-operative evaluation. [facility] Past Medical History Medical History (Updated 06/19/23 @ 12:28 by Lazaro Steven DO) Chronic cholecystitis Constipation Depression Generalized anxiety disorder Hypothyroidism Kidney stone Nausea Overweight (BMI 25.0-29.9) Surgical History Surgical History H/O laparoscopy History of ear surgery Family History Family History Son Asthma Grandparent Depression Diabetes mellitus Heart disease Hypertension Mother Depression Father Depression Social History Social History Smoking status: Never smoker Second hand tobacco smoke exposure: No Alcohol intake: never Drinks per week: 1 Substance use: never Substance use type: does not use Lack of Transportation: No Lack of Food: Never True Current Housing: I Have Housing Concerned About Future Housing: No Difficulty Paying Gas/Electric Bills: No Difficulty Paying for Meds: No Currently Unemployed: No Education: Associate Degree Difficulty w/ Childcare or Family Care: No Living arrangements: with family Occupation/Education: occupation Gender identity (if verbalized by the patient): Female Sexual Orientation (if Verbalized by the Patient): Straight or Heterosexual Spiritual care concerns: No Agree to blood products: Yes Anes - Eval Final PreProcedure Day of Procedure 06/19/23 12:28 Patient weight: overweight Heart: regular rate and rhythm Lungs: clear to auscultation Airway: Mallampati scale class III Neurological: alert and oriented Last oral intake: >/= 8 hours ASA classification: II Emergent: no Anesthetic plan: proceed Anesthesia type and monitoring: general ETT and standard monitoring Results Review: All pre-operative results and documents have been reviewed as part of the pre-operative evaluation. Informed Consent: The patient's anesthetic plan and its attendant risks and benefits were discussed with the patient/family/POA. Questions were solicited and answers provided to the satisfaction of the patient/family/POA.
[2023-06-20] VITALS (9 sets, daily range): BP systolic 107–150; BP diastolic 66–97; PULSE 55–76; RESP 10–16; TEMP 36.2–36.4; O2SAT 97–100
--- NOTE | 2023-06-20 06:45 | WPDHPUPDATE1 ---
History and Physical Update Update Date/Time: 06/20/23 06:45 History and Physical has been reviewed, including an updated exam of the patient. There are NO changes in the patient's condition. Risks, benefits, and alternatives have been discussed and questions answered. Patient agrees to proceed with procedure.
--- NOTE | 2023-06-20 12:19 | WPDHPUPDATE1 ---
History and Physical Update Update Date/Time: 06/20/23 12:19 History and Physical has been reviewed, including an updated exam of the patient. There are NO changes in the patient's condition. Risks, benefits, and alternatives have been discussed and questions answered. Patient agrees to proceed with procedure. declining btl. wishes to proceed with diagnostic l scope
[2023-06-20] MEDS: LACTATED RINGERS 1,000 ML 30 ML IV CONT ×2 (12:33→14:50)
[2023-06-20] MEDS: ACETAMINOPHEN 500 MG TABLET 1000 MG PO (12:35)
[2023-06-20] MEDS: KETOROLAC 15 MG/ML VIAL (*BKC) IV PUSH (12:35)
--- NOTE | 2023-06-20 13:05 | WPDHPUPDATE1 ---
History and Physical Update Update Date/Time: 06/20/23 13:05 History and Physical has been reviewed, including an updated exam of the patient. There are NO changes in the patient's condition. Risks, benefits, and alternatives have been discussed and questions answered. Patient agrees to proceed with procedure.
[2023-06-20] MEDS: SCOPOLAMINE 1 MG PATCH 1 PATCH TRANSDERM (13:20)
[2023-06-20] MEDS: ceFAZolin 2 GM/D5W 50 ML 2 GM/50 ML BAG IVPB (13:38)
[2023-06-20] MEDS: BUPIVACAINE/EPINEPHRINE 0.5% 30 ML VIAL INFILTRATE (14:01)
--- NOTE | 2023-06-20 14:10 | P.OP_ITS ---
Procedure Note - Detailed Date of Procedure 06/20/23 Pre-op Diagnosis chronic cholecystitis, pelvic pain Post-op Diagnosis Other (Same with endometriosis and bilateral ovarian cysts) Procedure Performed laparoscopic destruction bilateral ovarian cyst and destruction of endometriosis Surgeon Link Washington MD Anesthesia General Indications this is a 33-year-old female with cholecystitis and chronic pelvic pain. Findings Uterus had multiple fibroids making an enlarged. Normal-appearing tubes bilaterally. Endometriosis on the right ovary. Bilateral simple ovarian cyst Description of Procedure patient was prepped draped in the normal sterile fashion placed in the dorsal lithotomy position. Under excellent general trach anesthesia weighted speculum placed posterior fornix vagina. Anterior lip of the cervix grasped with single- tooth tenaculum. Simmons's cannula inserted the cervix attached a single-tooth. This was used later for uterine manipulation. After emptying bladder clear urine, the bladder was emptied of clear urine. The weighted speculum was removed the gloves were changed. Supraumbilical incision made the Veress needle passed in the abdomen. Abdomen filled with CO2 gas 15 was mercury. The 5mm trocar advanced under direct visualization assuring no injury. Patient placed in Trendelenburg and a suprapubic incision made. The 5mm trocar advanced under direct visualization assuring no injury. The above findings were noted. Using monopolar cautery the right ovary was cauterized at its areas of endometriosis and the ovarian cyst bilaterally were drained irrigation undertaken to clear. No other abnormalities were seen photo documentation undertaken. The lower site was removed and closed Dr. Ulloa took over from there blood loss to that point was [id number] there were no immediate complications Estimated Blood Loss 5 Drains No Packing No Pathology None sent Complications No immediate complications Condition Stable Disposition No change
--- NOTE | 2023-06-20 14:45 | P.OP_ITS ---
Procedure Note - Detailed Date of Procedure 06/20/23 Pre-op Diagnosis chronic cholecystitis, pelvic pain Post-op Diagnosis Same Procedure Performed Laparoscopic cholecystectomy Surgeon Saranya Busby MD Anesthesia General Indications 33-year-old female presented to the office complaining of postprandial right u pper quadrant abdominal pain associated with nausea and vomiting. Workup including imaging significant for chronic cholecystitis. Please also note patient with pelvic pain and going to undergo concurrent diagnostic laparoscopy by Dr. Landaverde. Findings chronic cholecystitis Description of Procedure I was called into the operating room after the completion of diagnostic laparoscopy by Dr. Landaverde. Please see full operative report for details of that procedure. He had already placed a 5 mm super umbilical port and the laparoscope was already placed through this site. A time-out was then performed to verify the patient's identity as well as the procedure being performed. Under direct visualization, I placed a further 12 mm subxiphoid port as well as 2 additional 5 mm ports in the right upper abdomen. The gallbladder was then identified and was noted to be moderately inflamed and distended. I was able to place a grasper at the dome of the gallbladder and this was retracted anterior and cephalad up over the liver. A 2nd retractor was then placed at the infundibulum and retracted laterally, this allowed visualization of the triangle of Calot. I then was able to visualize the cystic duct in its entirety from its proximal insertion into the gallbladder, to its distal junction with the common hepatic/common bile duct junction. At this point, I carefully skeletonized the proximal cystic duct with the [place] dissector. I then clipped and transected the proximal cystic duct. Next I visualized the cystic artery. Again the artery was skeletonized, clipped, and transected. I then used the Bovie cautery to take down the peritoneal attachments of the gallbladder off the liver bed. Once the gallbladder specimen was completely detached, an endo-pouch was placed through the 12 mm port site. I then placed the gallbladder specimen into the Endo pouch and removed the endo-pouch from the 12 mm port site. The specimen will now be sent to pathology for further review. I then copiously irrigated the right upper quadrant. Hemostasis was noted in the liver bed, the clips were noted to be in good position on both the cystic duct stump and the cystic artery stump. No other pathology was noted in the right upper quadrant. I then moved the laparoscope to the subxiphoid port. No iatrogenic injury or other pathology was noted in the lower abdomen. I then closed the 12 mm trocar site under direct visualization using the Luke cone and 0 Vicryl suture. At this point, the abdomen was desufflated and all ports removed. All port sites were then closed with 4.O Monocryl subcuticular sutures. Dermabond was placed on each incision. The patient tolerated the procedure well, was extubated in the operating room postoperative and will be transferred to the recovery room in stable condition Estimated Blood Loss 5 Drains No Packing No Pathology Yes Complications No immediate complications Condition Stable Disposition PACU [facility] Billing Surgery - Charge Forward: Surgery Billing
[2023-06-20] MEDS: oxyCODONE HCL (*CRX) 5 MG TAB IR PO (16:26)
== END 2023-06-20 17:15 | disposition home or self-care (01) ==
PROVIDERS: Obstetrics & Gynecology; PCP Family Medicine Adolescent Medicine; Visit Provider Surgery
PROC: 0FT44ZZ Resection of Gallbladder, Percutaneous Endoscopic Approach (ICD-10-PCS; CPT 47562; principal; 2023-06-20 13:30)
PROC: (CPT 49320; 2023-06-20 13:30)
DX: K80.10 Calculus of gallbladder with chronic cholecystitis without obstruction (principal); D25.9 Leiomyoma of uterus, unspecified; N80.101 Endometriosis of right ovary, unspecified depth; N83.292 Other ovarian cyst, left side; N83.291 Other ovarian cyst, right side; E03.9 Hypothyroidism, unspecified
CPT/HCPCS: 47562; 58662; 88304; A9270; J0690; J1100; J1170; J1885; J2250; J2405; J2704; J3010; J7030; J7120

== ENCOUNTER 2023-11-14 08:27 | Emergency (ER) | payer BC, SELFPAY ==
--- NOTE | ~2023-11-14 | CT_ITS ---
CT abdomen pelvis wo con Ordering provider: Alejandro Peterson MD History: . right flank pain/HX OF STONES . Comparison: May 24, 2023 Technique: CT abdomen without IV and without oral contrast. Radiation reduction technique utilized. D LP is 491.11 mGy. Findings: VISUALIZED LOWER CHEST: Normal. UPPER ABDOMINAL ORGANS: Liver: Fat infiltration. Gallbladder: Status post cholecystectomy. Spleen: Normal. Stomach/duodenum: Normal. Pancreas: Normal. Adrenals: Normal. Kidneys: Stones in the left kidney lower pole of the largest measures 4 mm. Tiny stone in the right k idney lower pole. Dilated right renal pelvis stone in the right lower ureter is noted measuring 5 mm. Urinary bladder: Normal. Retroverted uterus. VISUALIZED BOWEL AND MESENTERY: Normal appendix. The bowel is otherwise normal. No free air or free f luid. No mesenteric lymphadenopathy. RETROPERITONEUM: Normal abdominal aorta. No retroperitoneal lymphadenopathy. MUSCULOSKELETAL: The superficial soft tissues are normal. Normal spine. IMPRESSION: Right lower ureteric stone with the right mild hydronephrotic changes. Bilateral kidney stones. Fat infiltration of the liver. Reviewed, dictated and finalized at location A.
[2023-11-14 08:30] VITALS: BP 131/102; PULSE 71; RESP 20; TEMP 36.2; O2SAT 98
--- NOTE | 2023-11-14 08:31 | ED.ABDPAIN ---
HPI - Abdominal Pain General Chief Complaint: Urogenital-Female Stated Complaint: pain & frequent urination Time Seen by Provider: 11/14/23 08:30 Source: patient Mode of arrival: ambulatory Limitations: no limitations History of Present Illness HPI narrative: 33-year-old female with a history of generalized anxiety disorder, depression, hypothyroidism, Hypertension,kidney stones during her last , , status post sterilization presents to the ER with a 3 day history of -- dysuria and hematuria. increased frequency of micturition -- Right CVA angle pain. No radiation of the pain. This is similar to her pain during her previous episode of kidney stones. pain is worse on leaning back No fever or chills. MD elicited complaint: flank pain Pertinent past history: other ( kidney stones) Onset (ago): day(s) ( 3 days) Pain Consistency: intermittent Location: R flank Severity: moderate Quality: aching Radiation: none Migration to: no migration Exacerbating factors: nothing Relieving factors: nothing Associated symptoms: denies other symptoms Related Data Patient : No Home Medications Medication Instructions Recorded Confirmed cetirizine 10 mg tablet (Allergy 10 mg PO HS 12/23/20 11/14/23 Relief (cetirizine)) levothyroxine 50 mcg tablet 50 mcg PO HS 09/11/22 11/14/23 lisinopril 10 mg tablet 10 mg PO DAILY 11/14/23 11/14/23 Allergies Allergy/AdvReac Type Severity Reaction Status Date / Time nitroglycerin AdvReac Loss of Verified 11/14/23 08:33 Consciousness Review of Systems Review of Systems: All systems reviewed & are unremarkable except as noted in HPI and below Constitutional: Constitutional: Reports as per HPI and Reports no additional constitutional complaints Eyes: Eyes: Reports as per HPI and Reports no additional eye complaints ENT: Reports system reviewed and no additional complaints, except as documented and Reports as per HPI Cardiovascular: Cardiovascular: Reports as per HPI and Reports no additional cardiovascular complaints Respiratory: Respiratory: Reports as per HPI and Reports no additional respiratory complaints Gastrointestinal: Gastrointestinal: Reports as per HPI, Reports no additional gastrointestinal complaints and Reports abdominal pain Comments: right CVA angle pain Genitourinary: Comments: dysuria and hematuria. Increased frequency of micturition. Musculoskeletal: Musculoskeletal: Reports no additional musculoskeletal complaints and Reports as per HPI Integumentary/Breasts: Skin/Breast: Reports system reviewed and no additional complaints, except as docu and Reports as per HPI Neurologic: Reports system reviewed and no additional complaints, except as documented and Reports as per HPI Psychiatric: Psychiatric: Reports no additional psychiatric complaints, Reports as per HPI and Reports anxiety Endocrine: Endocrine: Reports no additional endocrine complaints and Reports as per HPI Hematologic/Lymphatic: Hematologic/Lymphatic: Reports no additional hematologic/lymphatic complaints and Reports as per HPI Allergic/Immunologic: Allergic/Immunologic: Reports no additional allergic/immunologic complaints and Reports as per HPI [facility] Past Medical History Medical History (Updated 11/14/23 @ 10:04 by Alejandro Peterson MD) Chronic cholecystitis Constipation Depression Generalized anxiety disorder History of cholestasis during Hypothyroidism Kidney stone Nausea Overweight (BMI 25.0-29.9) Surgical History Surgical History H/O laparoscopy History of cholecystectomy (05/2023) History of ear surgery Family History Family History Son Asthma Grandparent Depression Diabetes mellitus Heart disease Hypertension Mother Depression Father Depression Social History Social History (Reviewed 11/14/23 @
[2023-11-14 09:08] LABS: Appearance Urine Sl Cloudy (Clear); Bilirubin Urine Negative (Negative); Blood Urine 3+ (Negative); Color Urine Yellow (Yellow); Glucose Urine UA Negative (Negative); Ketones Urine Negative (Negative); Leukocyte Esterase Ur Negative LEU/UL (Negative); Nitrate Urine Negative (Negative); Protein Urine 1+ (Negative); Specific Grav Ur >= 1.030 (1.010-1.020); Urobilinogen Urine 0.2 mg/dL (0.2-1.0); pH Urine 5.5 (5.0-8.0)
[2023-11-14 09:11] LABS: Add Urine Microscopic? YES; RBC Urine >75 /hpf (0-2); Squamous Epithelial Cell Urine Moderate /hpf (Few); WBC Urine None seen /hpf (0-3)
[2023-11-14 09:12] LABS: Bacteria Urine 1+ /hpf
[2023-11-14 09:14] LABS: Pregnancy On Board Control Positive; Urine Pregnancy Test Negative
[2023-11-14] MEDS: SODIUM CHLORIDE 0.9% IV 1,000 ML 999 ML IV CONT (09:16)
[2023-11-14 09:17] LABS: Basophils Absolute Auto 0.01 K/mm3 (0.00-0.10); Basophils Percent Auto 0.2 % (0.0-1.0); Eosinophils Absolute Auto 0.11 K/mm3 (0.02-0.50); Eosinophils Percent Auto 1.9 % (1.0-6.0); Hematocrit 39.3 % (35.0-49.0); Hemoglobin 13.5 g/dL (12.0-15.0); Immature Granulocyte Absolute 0.03 K/mm3 (0.00-0.00); Immature Granulocyte Percent A 0.5 % (0.0-0.0); Lymphocytes Absolute Auto 1.87 K/mm3 (1.10-4.50); Mean Corpuscular HGB Conc 34.4 g/dL (32-36); Mean Corpuscular Hemoglobin 30.9 pg (27.0-31.0); Mean Corpuscular Volume 89.9 fL (78.0-102.0); Mean Platelet Volume 10.5 fl (9.2-11.8); Monocytes Percent Auto 8.6 % (2.0-11.0); Neutrophils Absolute Auto 3.32 K/mm3 (1.70-7.20); Neutrophils Percent Auto 56.8 % (50.0-70.0); Platelet Count Result 211 K/mm3 (150-420); Red Blood Count 4.37 M/mm3 (4.20-5.40); Red Cell Distribution Width 12.5 % (11.6-14.4); White Blood Count 5.8 K/mm3 (4.8-10.8)
[2023-11-14] MEDS: KETOROLAC 30 MG/ML VIAL (*BKC) IV PUSH (09:18)
[2023-11-14 09:32] LABS: Alanine Aminotransferase 53 U/L (14-59); Alkaline Phosphatase 61 U/L (46-116); Anion Gap 9 mmol/L (4-12); Aspartate Amino Transferase 23 U/L (15-37); Bilirubin,Total 0.3 mg/dL (0.00-1.00); Blood Urea Nitrogen 14 mg/dL (7-18); Calcium 8.8 mg/dL (8.5-10.1); Carbon Dioxide 27 mmol/L (21-32); Chloride 103 mmol/L (98-108); Estimated CRCL calculation 93 ml/min; Estimated Glomerular Filt Rate > 60; Glucose 109 mg/dL (70-99); Lipase 24 U/L (16-77); Osmolality Calculated 289 mOsm/kg (285-295); Potassium 3.7 mmol/L (3.5-5.1); Sodium 139 mmol/L (136-145); Total Protein 7.5 g/dL (6.4-8.2)
[2023-11-14 09:37] LABS: Lactic Acid Reflex 1.5 mmol/L (0.4-2.0)
[2023-11-14 09:51] LABS: Thyroid Stimulating Hormone Reflex 2.14 u/IU/mL (0.36-3.74)
[2023-11-14 10:07] VITALS: BP 121/81; PULSE 62; RESP 16; TEMP 36.7; O2SAT 99
== END 2023-11-14 10:20 | disposition home or self-care (01) ==
PROVIDERS: Emergency Provider Internal Medicine Critical Care Medicine
DX: N20.0 Calculus of kidney (principal); F41.9 Anxiety disorder, unspecified; F32.A Depression, unspecified; E03.9 Hypothyroidism, unspecified; I10 Essential (primary) hypertension; Z79.899 Other long term (current) drug therapy
CPT/HCPCS: 36415; 74176; 80053; 81001; 81025; 83605; 83690; 84443; 85025; 96361; 96374; 99284; J1885; J7030

== ENCOUNTER 2024-01-07 13:42 | Outpatient (CLI) | payer BC, SELFPAY ==
--- NOTE | 2024-01-07 13:00 | ECG_ITS ---
Test Date: 2024-01-07 13:58:10 Measurements Intervals [place] Rate: 63 P: 52 HI: 181 QRS: 49 QRSD: 101 T: 48 QT: 390 QTc: 399 Interpretive Statements SINUS RHYTHM WITHIN NORMAL LIMITS No previous ECG available for comparison Electronically Signed On 01-07-2024 14:52:34 CDT by Nghia Batres M.D.
== END 2024-01-07 13:43 | disposition home or self-care (01) ==
LOC: ANHSURGERY 13:44
PROVIDERS: PCP Family Medicine Adolescent Medicine; Visit Provider Obstetrics & Gynecology
DX: Z01.812 Encounter for preprocedural laboratory examination (principal); Z01.810 Encounter for preprocedural cardiovascular examination; R10.2 Pelvic and perineal pain; N92.6 Irregular menstruation, unspecified
CPT/HCPCS: 36415; 86850; 86900; 86901; 93005

== ENCOUNTER 2024-01-11 01:05 | Day surgery (SDC) | payer BC, SELFPAY ==
[2024-01-04 11:11] VITALS: BMI 27.5
--- NOTE | 2024-01-04 11:18 | PC.NURSE ---
Report to the Outpatient Waiting Room, entrance under the green pavilion located off [facility], at time _0830_ on date _[id number]_. Planned Procedure Time: _1030_. Time changes happen often and if your time is changed the preop area will call you the afternoon before. - You and your visitor will be asked to self-screen and do not enter if you have any COVID symptoms. - A mask is optional within the hospital at this time. Patients may have clear liquids (water, carbonated beverages, clear teas, apple juice) until 3 hours prior to surgery with a maximum of 20 ounces. - No food from midnight until time of surgery Take the following medications with a SIP of water the morning of surgery: ____None DO NOT STOP ANY OF YOUR OTHER PRESCRIPTION MEDICATIONS PRIOR TO SURGERY ?EXCEPT THE FOLLOWING Medications to discontinue per physician Vitamin d Date to take last dose___Skip Sunday's dose. Please no make-up, nail portuguese, hairspray, perfume, deodorant, or body powder the day of surgery. No jewelry (including any body piercings) or valuables the day of surgery, leave them at home. Please take a shower or bath the night before, or the morning of, surgery with an antibacterial soap. Wear comfortable, loose fitting clothing. - Jewelry must be removed prior to entering the operating room. Rings and piercings that are not removed may be cut off. - The hospital will not accept responsibility for valuables. - Please leave all valuables, including medications, at home the day of surgery. If you are going home after surgery, a licensed local intermodal truck driver must drive you home. - NO public transportation without another adult if you receive anesthesia. - We recommend that an adult stay with you for 24 hours following discharge. - We also recommend that you do not drive, make important decision, drink alcoholic beverages, or take any drugs that were not prescribed by your health care provider for at least 24 hours after your discharge time. Follow any additional instructions given to you from your surgeon. If you or anyone in your household have experienced Covid symptoms in the past week, please notify your surgeon or the nurse liaison at the phone number below for possible testing. Telephone instructions given to __Heather___and asked if any additional questions and then verbalized understanding. Patient advised to call surgeon office or pre surgery nurse liaison [phone] if any additional questions.
--- NOTE | 2024-01-09 06:56 | PM.IMHP ---
H&P: HPI History of Present Illness Date/Time: 01/09/24 06:56 Chief Complaint: pelvic pain/ enlarged uterus dyspareunia/ hymeneal tag/ nevi Narrative: this is a 33-year-old multiparous patient admitted for robotic hysterectomy bilateral salpingectomy and removal of hymeneal tag. She also has a left sided mole under her breast in on back which she will have removed. risks and benefits including not exclusive of , aspiration pneumonia, bleeding, transfusion, perforation injury to bowel, bladder, ureters, or other internal organs with need for laparotomy were reviewed. She received the [employer] handout entitled hysterectomy as well as individually handout. She had all questions answered. She asked to proceed. [facility] Past Medical History Medical History Chronic cholecystitis Constipation Depression Generalized anxiety disorder History of cholestasis during Hypothyroidism Kidney stone Nausea Overweight (BMI 25.0-29.9) Surgical History Surgical History H/O laparoscopy History of cholecystectomy (05/2023) History of ear surgery Family History Family History Son Asthma Grandparent Depression Diabetes mellitus Heart disease Hypertension Mother Depression Father Depression Social History Social History Smoking status: Never smoker Second hand tobacco smoke exposure: No Alcohol intake: current Drinks per week: 1 Substance use: never Substance use type: does not use Lack of Transportation: No Lack of Food: Never True Current Housing: I Have Housing Concerned About Future Housing: No Difficulty Paying Gas/Electric Bills: No Difficulty Paying for Meds: No Currently Unemployed: No Education: Associate Degree Difficulty w/ Childcare or Family Care: No Living arrangements: with family Occupation/Education: occupation Gender identity (if verbalized by the patient): Female Sexual Orientation (if Verbalized by the Patient): Straight or Heterosexual Spiritual care concerns: No Agree to blood products: Yes Meds Home Medications and Allergies Home Medications Medication Instructions Recorded Confirmed Type cetirizine 10 mg tablet (Allergy 10 mg PO HS 12/23/20 01/04/24 History Relief (cetirizine)) levothyroxine 50 mcg tablet 50 mcg PO HS 09/11/22 01/04/24 History lisinopril 10 mg tablet 10 mg PO DAILY 11/14/23 01/04/24 History cholecalciferol (vitamin D3) 250 250 mcg PO WEEKLY 01/04/24 01/04/24 History mcg (10,000 unit) capsule escitalopram oxalate 10 mg tablet 10 mg PO HS 01/04/24 01/04/24 History Allergies Allergy/AdvReac Type Severity Reaction Status Date / Time nitroglycerin AdvReac Loss of Verified 01/04/24 11:08 Consciousness Exam Const: General: cooperative, healthy appearing and comfortable Nutritional Appearance: average body habitus Orientation/consciousness: oriented to person, oriented to place and oriented to time HENMT: Head: normal to inspection Resp: Effort & Inspection: normal respiratory effort Cardio: Rate: regular rate Rhythm: regular rhythm Heart sounds: S1 normal heart sound present and S2 normal heart sound present GI: Inspection: normal to inspection Other: nevus noted under left breast and unpacked : External Female Exam: normal external appearance and other ( Hymeneal tag noted) Speculum Exam - Vagina: normal appearance of the vagina Speculum Exam - Cervix: normal appearance of the cervix Bimanual exam- vagina & uterus: enlarged and Uterine tenderness Bimanual Exam- Adnexa, other: normal adnexae Assessment and Plan Assessment and plan (1) Irregular bleeding: Code(s): N92.6 - Irregular menstruation, unspecified Status: Acute (2) Pe
[2024-01-11] VITALS (14 sets, daily range): BP systolic 103–125; BP diastolic 52–89; PULSE 60–77; RESP 10–17; TEMP 36.1–36.4; O2SAT 93–100
--- NOTE | 2024-01-11 01:26 | WPDHPUPDATE1 ---
History and Physical Update Update Date/Time: 01/11/24 01:26 History and Physical has been reviewed, including an updated exam of the patient. There are NO changes in the patient's condition. Risks, benefits, and alternatives have been discussed and questions answered. Patient agrees to proceed with procedure.
--- NOTE | 2024-01-11 10:04 | WPDANESEPPF ---
Anes - Initial Pre Proc Eval Procedure: Operation Date: 01/11/24 10:30 Proposed Procedures p Robotic Assisted Total Vaginal Hysterectomy with Bilateral Salpingectomy - Link Washington MD s Removal of Hymenal Tag, Removal of Mole Left Breast and Back area - Link Washington MD Date/Time: 01/11/24 10:04 Surgeon: Link Washington MD Pre Op Diagnosis: Pain, Enlarged Uterus Dyspareunia Patient Data Age: 33 Gender: F Height: 1.68 m Weight: 77.3 kg Allergies Allergy/AdvReac Type Severity Reaction Status Date / Time nitroglycerin AdvReac Loss of Verified 01/04/24 11:08 Consciousness Home Medications Medication Instructions Recorded Confirmed Type cetirizine 10 mg tablet (Allergy 10 mg PO HS 12/23/20 01/04/24 History Relief (cetirizine)) levothyroxine 50 mcg tablet 50 mcg PO HS 09/11/22 01/04/24 History lisinopril 10 mg tablet 10 mg PO DAILY 11/14/23 01/04/24 History cholecalciferol (vitamin D3) 250 250 mcg PO WEEKLY 01/04/24 01/04/24 History mcg (10,000 unit) capsule escitalopram oxalate 10 mg tablet 10 mg PO HS 01/04/24 01/04/24 History hydrocodone 5 mg-acetaminophen 325 1 tablet PO Q4H PRN pain #30 tabs 01/11/24 Rx mg tablet Patient hx anesthesia problems: none Family hx anesthesia problems: none Results Review: All pre-operative results and documents have been reviewed as part of the pre-operative evaluation. [facility] Past Medical History Medical History Chronic cholecystitis Constipation Depression Generalized anxiety disorder History of cholestasis during Hypothyroidism Kidney stone Nausea Overweight (BMI 25.0-29.9) Surgical History Surgical History H/O laparoscopy History of cholecystectomy (05/2023) History of ear surgery Family History Family History Son Asthma Grandparent Depression Diabetes mellitus Heart disease Hypertension Mother Depression Father Depression Social History Social History Smoking status: Never smoker Second hand tobacco smoke exposure: No Alcohol intake: current Drinks per week: 1 Substance use: never Substance use type: does not use Lack of Transportation: No Lack of Food: Never True Current Housing: I Have Housing Concerned About Future Housing: No Difficulty Paying Gas/Electric Bills: No Difficulty Paying for Meds: No Currently Unemployed: No Education: Associate Degree Difficulty w/ Childcare or Family Care: No Living arrangements: with family Occupation/Education: occupation Gender identity (if verbalized by the patient): Female Sexual Orientation (if Verbalized by the Patient): Straight or Heterosexual Spiritual care concerns: No Agree to blood products: Yes Anes - Eval Final PreProcedure Day of Procedure 01/11/24 10:04 Patient weight: overweight Heart: regular rate and rhythm Lungs: clear to auscultation Airway: Mallampati scale class II Neurological: alert and oriented Last oral intake: >/= 8 hours ASA classification: II Emergent: no Anesthetic plan: proceed Anesthesia type and monitoring: general ETT and standard monitoring Results Review: All pre-operative results and documents have been reviewed as part of the pre-operative evaluation. Informed Consent: The patient's anesthetic plan and its attendant risks and benefits were discussed with the patient/family/POA. Questions were solicited and answers provided to the satisfaction of the patient/family/POA.
[2024-01-11] MEDS: ACETAMINOPHEN 500 MG TABLET 1000 MG PO (10:10)
[2024-01-11] MEDS: LACTATED RINGERS 1,000 ML 30 ML IV CONT ×2 (10:10→12:26)
[2024-01-11] MEDS: KETOROLAC 15 MG/ML VIAL (*BKC) IV PUSH (10:10)
[2024-01-11 10:28] LABS: BEDSIDEPREGUCG Negative
[2024-01-11] MEDS: ceFAZolin 2 GM/D5W 50 ML 2 GM/50 ML BAG IVPB (11:02)
--- NOTE | 2024-01-11 12:29 | W.PM.PROC2 ---
Procedure Note - Detailed Date of Procedure 01/11/24 Pre-op Diagnosis Pain, Enlarged Uterus Dyspareunia Post-op Diagnosis Same Procedure Performed Robotic total vaginal hysterectomy bilateral salpingectomy Surgeon Link Washington MD Anesthesia General Indications 33-year-old female with enlarged uterus pelvic pain dyspareunia Findings enlarged uterus with second-degree prolapse. Normal-appearing tubes and ovaries. Description of Procedure The patient was prepped draped in the normal sterile fashion placed in the dorsal lithotomy position. Under excellent general tracheal anesthesia we could speculum placed in the posterior fornix vagina. Anterior lip of the cervix grasped with a single-tooth tenaculum. Uterus sounded to 10cm. Serial dilatation with fragmented dilators performed followed by passage of the 8. SHANE and the 3. Cold cup. Next the 16 Bengali catheter was placed in the bladder and drained of clear urine. The weighted speculum and single-tooth removed. The gloves were changed. Supraumbilical incision made the Veress needle passed in the abdomen. Abdomen filled with CO2 gas to 15mm. The 8mm trocar advanced in the downside visualized no injury seen. Patient placed in Trendelenburg left and right lateral quadrant incisions made. 8Mm trocars advanced under direct visualization. In like fashion the right upper quadrant 5mm trocar was made and the 8mm trocar advanced under direct visualization assuring no injury. The robot was docked. Attention was turned to the queen's counsel. The left round ligament was grasped, burned, cut. Anteriorly a bladder flap was formed by sharply dissecting the. Peritoneum and reflecting the bladder caudally away from the cervix uterus the opposite round ligament was clamped, burned, cut. The right ovary was spared in the right tube was sharply dissected away from the ovarian complex and left attached to the uterine origin. This was accomplished with the left fallopian tube as well. The left utero-ovarian ligament was skeletonized to conserve the left ovary tube clamping burning cutting and bringing this to the previously cut round ligament. In similar fashion on the right, the the utero-ovarian ligament was skeletonized clamping burning cutting read this level of previously cut round ligament thus conserving the right ovary. The cardinal broad ligaments on the left were serially skeletonized clamping burning cutting and bringing this down the lateral edge of the uterus and cervix until the large uterine vessels were seen. These were individually clamped, burned, cut. In similar fashion on the right the cardinal broad ligaments were serially skeletonized clamping burning cutting and bringing these down to the level of the uterine vessels on the right. These were individually clamped, burned, cut. Blanching of the uterus was noted. A colpotomy incision was made the cervix uterus and tubes removed through the vagina. The vagina then closed with continuous running 0V lock from lateral edge to lateral edge back to midline. Irrigation was undertaken and hemostasis was assured. The robot was undocked and the gas removed from the abdomen. The trocars removed the incisions closed with 4 Monocryl and glue. There was a small lesion on the breast which was swabbed and picked up with a forceps and removed silver nitrate was used to burn in similar fashion of the mid cycle above the left buttocks was another small skin tag which was cleansed and sharply dissected and burned with silver nitrate patient was then awakened went to recovery in satisfactory condition. All sponge, needle, instrument counts were correct. There were no immediate complications Estimated Blood Loss 25 Drains No Packing No Pathology Yes Complications No immediate complications Condition Stable Disposition PACU
--- NOTE | 2024-01-11 12:34 | PM.DS ---
DS: Admitting Diagnosis Discharge Date 01/12/2024 Admitting Diagnosis pelvic pain/ enlarged uterus /nevus DS: Discharge Diagnosis Discharge Diagnosis (1) Nevus: Code(s): D22.9 - Melanocytic nevi, unspecified Status: Acute (2) Dyspareunia: Status: Acute (3) Enlarged uterus: Code(s): N85.2 - Hypertrophy of uterus Status: Acute DS: Summary Hospital Course Reason for hospitalization: patient was admitted for robotic total vaginal hysterectomy bilateral salpingectomy on 01/11/2024. Hospital Course: The patient's hospital course was unremarkable. She remained afebrile. She was up, voiding without difficulty, eating regular diet, ambulating, and generally without complaints. Time Spent with Patient Time attestation: Total time spent providing and/or coordinating discharge services: Exam Const: General: cooperative, healthy appearing and comfortable Nutritional Appearance: average body habitus Orientation/consciousness: oriented to person, oriented to place and oriented to time HENMT: Head: normal to inspection Resp: Effort & Inspection: normal respiratory effort Cardio: Rate: regular rate Rhythm: regular rhythm Heart sounds: S1 normal heart sound present and S2 normal heart sound present GI: Inspection: normal to inspection and incision ( Wounds clean dry and intact) DS: Data Data Completed and Pending Pending studies at discharge: Pending at discharge 01/11/24 12:03 Surgical [PTH] Routine Labs on day of discharge: Labs from last 24 hours 01/11/24 10:10 POC Urine HCG, Qual Negative POC Ur Preg QC Yes Discharge Plan Discharge Patient Disposition: Home, Self-Care Discharge Instructions: Nothing in the vagina for 6 weeks. Call or return if temperature above 100.4? F, increased abdominal pain, increased vaginal bleeding or any new problems. Stand Alone Forms: General Discharge Instructions Follow-up/Referrals: Link Chew MD [Physician] - 2 Weeks Discharge Medications: New hydrocodone-acetaminophen 5-325 mg tablet 1 tablet PO Q4H PRN (Reason: pain) Qty: 30 0RF Continued lisinopril 10 mg tablet 10 mg PO DAILY cetirizine [Allergy Relief (cetirizine)] 10 mg tablet 10 mg PO HS levothyroxine 50 mcg Tablet 50 mcg PO HS escitalopram oxalate 10 mg tablet 10 mg PO HS cholecalciferol (vitamin D3) 250 mcg (10,000 unit) capsule 250 mcg PO WEEKLY Rx Instructions: Sunday
--- NOTE | 2024-01-11 14:46 | ADMGEN ---
This patient, Yasmin Vasquez, was admitted to [facility] Surg Room 317-02. Patient/family oriented to hospital policies and general routines including ID bracelet, bed and alarms, visiting hours, pain management, procedures, bathroom and other care routines, personal items, smoking policy, room service/diet, and visiting hours. Information on how to activate the Rapid Response Team has been discussed. Patient/Family are encouraged to report perceived risks to care and to ask questions if they do not understand what they are told or what they should do.
[2024-01-11] MEDS: KETOROLAC 30 MG/ML VIAL (*BKC) IV PUSH (14:58)
[2024-01-11] MEDS: DEXTROSE 5%/LACTATED RINGERS 1,000 ML 125 ML IV CONT (15:50)
[2024-01-11] MEDS: HYDROcodone/acetaminophen (*CRX) 10-325 MG TABLET 1 TAB PO (19:43)
[2024-01-12 00:03] VITALS: BP 105/61; PULSE 70; RESP 20; TEMP 36.4; O2SAT 94
[2024-01-12] MEDS: DEXTROSE 5%/LACTATED RINGERS 1,000 ML 125 ML IV CONT (00:16)
[2024-01-12] MEDS: ESCITALOPRAM OXALATE 10 MG TABLET PO (00:16)
[2024-01-12 04:03] VITALS: BP 101/64; PULSE 67; RESP 20; TEMP 36.9; O2SAT 97
[2024-01-12] MEDS: LEVOTHYROXINE SODIUM 50 MCG TABLET PO (05:15)
[2024-01-12] MEDS: IBUPROFEN 600 MG TABLET PO (05:15)
[2024-01-12 05:39] LABS: Basophils Percent Auto 0.1 % (0.2-1.2); Hematocrit 35.8 % (37.0-47.0); Hemoglobin 12.2 g/dL (12.0-15.0); Immature Granulocyte Absolute 0.06 K/mm3 (0.00-0.031); Immature Granulocyte Percent A 0.6 % (0-0.5); Lymphocytes Absolute Auto 1.24 K/mm3 (0.9-3.2); Lymphocytes Percent Auto 11.5 % (18.3-44.2); Mean Corpuscular HGB Conc 34.1 g/dl (32-36); Mean Corpuscular Hemoglobin 31.4 pg (26-34); Mean Platelet Volume 10.9 fl (7.4-10.4); Monocytes Absolute Auto 0.8 K/mm3 (0.1-0.6); Monocytes Percent Auto 7.2 % (2.6-8.5); Neutrophils Absolute Auto 8.7 K/mm3 (1.3-6.7); Neutrophils Percent Auto 80.6 % (45.5-73.1); Platelet Count Result 205 k/mm3 (150-375); Red Blood Count 3.89 M/mm3 (4.2-5.4); Red Cell Distribution Width 13.1 % (11.5-14.5); White Blood Count 10.7 K/mm3 (4.5-10.0)
--- NOTE | 2024-01-12 07:31 | WPDANESPN ---
Anes - Prog Note Post-Op Date/Time: 01/12/24 07:31 Cardiovascular status: normal Respiratory status: normal Airway patency: baseline Mental status: baseline Post-Op hydration status: normal Vital Signs: Last Vital Signs Temp 36.9 C 01/12/24 04:03 Pulse 67 01/12/24 04:03 Resp 20 01/12/24 04:03 BP 101/64 01/12/24 04:03 Pulse Ox 97 01/12/24 04:03 O2 Del Method Room Air 01/11/24 20:00 O2 Flow Rate 8 01/11/24 12:55 Pain Score (VAS): 1 I/O: Intake & Output 01/11/24 01/11/24 01/12/24 15:59 23:59 07:59 Intake Total 750 1600 550 Output Total 907 491 5588 Balance 650 700 -850 Laboratory Tests 01/12/24 05:30 01/11/24 01/12/24 10:10 05:30 WBC 10.7 H RBC 3.89 L Hgb 12.2 Hct 35.8 L MCV 92.0 MCH 31.4 MCHC 34.1 RDW 13.1 Plt Count 205 MPV 10.9 H Immature Gran % (Auto) 0.6 H Neut % (Auto) 80.6 H Lymph % (Auto) 11.5 L [place] % (Auto) 7.2 Eos % (Auto) 0.0 Baso % (Auto) 0.1 L Lymph # (Auto) 1.24 [place] # (Auto) 0.8 H Eos # (Auto) 0.0 Baso # (Auto) 0.0 Abs Immat Gran (auto) 0.06 H Absolute Neuts (auto) 8.7 H Absolute Nucleated RBC 0.000 Nucleated RBC % 0.0 POC Urine HCG, Qual Negative POC Ur Preg QC Yes Post-procedural complaints: none Patient Feedback: Patient satisfied with anesthetic care.
[2024-01-12 08:00] VITALS: PULSE 58; RESP 16; O2SAT 96
[2024-01-12 08:07] VITALS: BP 116/62; PULSE 58; RESP 16; TEMP 36.8; O2SAT 96
[2024-01-12] MEDS: SIMETHICONE 80 MG TAB.CHEW PO (09:15)
[2024-01-12] MEDS: DOCUSATE SODIUM 100 MG CAPSULE PO (09:15)
[2024-01-12] MEDS: ENOXAPARIN 40 MG/0.4 ML SYRINGE SUB-Q (09:16)
--- NOTE | 2024-01-12 12:21 | PM.GYNPNOP ---
DATA COMMUNICATIONS TECHNICIAN - A/P Assessment and plan (1) Nevus: Code(s): D22.9 - Melanocytic nevi, unspecified Status: Acute Assessment and Plan: A: POD#1 after robotic assisted TVHBS, removal of skin nevi, doing well. P: Home to f/u office 2 weeks. (2) Dyspareunia: Status: Acute Postoperative Procedures: Procedures Operation Date: 01/11/24 10:30 Actual Procedure Side Surgeon p Robotic Assisted Total Vaginal Hysterectomy with Bilateral Salpingectomy Link Washington MD s Removal of Mole Left Breast and Back area Link Washington MD Postoperative day: 1 Time Spent With Patient Time with patient: less than 15 minutes DATA COMMUNICATIONS TECHNICIAN- PN:Subj Post-Op Subjective Date/time seen: 01/12/24 12:21 Interval history: Pain OK. Tolerating diet. Voiding. Would like to go home. Exam Narrative: AVSS I/O OK ABD soft, nontender. Incisions c/d/i. EXT nontender DATA COMMUNICATIONS TECHNICIAN - PN: Obj Data Vital Signs Vital Signs: Vital Signs - 24 hr 01/11/24 12:26 01/11/24 12:40 01/11/24 12:55 Temperature 36.3 C L Pulse Rate 64 66 66 Respiratory Rate 10 L 10 L 12 Blood Pressure 124/83 105/57 L 103/52 L Pulse Oximetry 99 100 98 Oxygen Delivery Simple Face Mask Simple Face Mask Simple Face Mask Oxygen Flow Rate 6 6 8 01/11/24 13:10 01/11/24 13:25 01/11/24 13:40 Temperature Pulse Rate 70 71 68 Respiratory Rate 12 12 12 Blood Pressure 116/72 117/74 108/73 Pulse Oximetry 93 94 94 Oxygen Delivery Room Air Room Air Room Air Oxygen Flow Rate 01/11/24 13:55 01/11/24 14:10 01/11/24 14:35 Temperature 36.2 C L Pulse Rate 66 65 73 Respiratory Rate 12 12 16 Blood Pressure 107/68 108/65 121/77 Pulse Oximetry 94 94 97 Oxygen Delivery Room Air Room Air Oxygen Flow Rate 01/11/24 14:47 01/11/24 15:20 01/11/24 16:26 Temperature 36.1 C L 36.1 C L 36.1 C L Pulse Rate 77 60 63 Respiratory Rate 17 16 16 Blood Pressure 113/74 117/59 L 112/65 Pulse Oximetry 96 95 96 Oxygen Delivery Oxygen Flow Rate 01/11/24 20:03 01/11/24 20:00 01/12/24 00:03 Temperature 36.1 C L 36.4 C Pulse Rate 63 70 Respiratory Rate 16 20 Blood Pressure 110/66 105/61 Pulse Oximetry 97 94 Oxygen Delivery Room Air Oxygen Flow Rate 01/12/24 04:03 01/12/24 08:07 01/12/24 08:00 Temperature 36.9 C 36.8 C Pulse Rate 67 58 L 58 L Respiratory Rate 20 16 16 Blood Pressure 101/64 116/62 Pulse Oximetry 97 96 96 Oxygen Delivery Room Air Oxygen Flow Rate Intake/Output Intake/Output: Intake & Output 01/09/24 01/10/24 01/11/24 01/12/24 23:59 23:59 23:59 23:59 Intake Total 2350 1100 Output Total 1000 1650 Balance 1350 -550 Meds/Results Medications: Active Medications Generic Name Dose Route Start Last Admin Trade Name Freq PRN Reason Stop Dose Admin Hydrocodone Bitart/Acetaminophen 1 tab 01/11/24 14:18 Hydrocodone/Acetaminophen (*Crx) 5-325 Mg Tablet PO Q3H PRN Pain Rated 5 or Less Hydrocodone Bitart/Acetaminophen 1 tab 01/11/24 14:18 01/11/24 19:43 Hydrocodone/Acetaminophen (*Crx) 10-325 Mg Tablet PO 1 tab Q3H PRN Administration Pain Rated 6 or Greater Docusate Sodium 100 mg 01/11/24 17:00 01/12/24 09:15 Docusate Sodium 100 Mg Capsule PO 100 mg BID BRIA Administration Enoxaparin Sodium 40 mg 01/12/24 09:00 01/12/24 09:16 Enoxaparin 40 Mg/0.4 Ml Syringe SUB-Q 40 mg DAILY BRIA Administration Escitalopram Oxalate 10 mg 01/11/24 21:55 01/12/24 00:16 Escitalopram Oxalate 10 Mg Tablet PO 10 mg HS BRIA Administration Dextrose/Lactated Ringer's 1,000 mls @ 125 mls/hr 01/11/24 14:18 01/12/24 08:15 Dextrose 5%/Lactated Ringers IV CONT Not Given .Q8H BRIA Ibuprofen 600 mg 01/11/24 14:18 01/12/24 05:15 Ibuprofen 600 Mg Tablet PO 600 mg Q6H PRN Administration Cramping Ketorolac Tromethamine 30 mg 01/11/24 14:18 01/11/24 14:58 Ketorolac 30 Mg/Ml Vial (*[facility]) IV PUSH 01/16/24 14:17 30 mg Q
== END 2024-01-12 13:25 | disposition home or self-care (01) ==
LOC: ANHSURGERY 08:47 → ANH3MEDSUR 14:23
PROVIDERS: PCP Family Medicine Adolescent Medicine; Visit Provider Obstetrics & Gynecology
PROC: (CPT 58552; principal; 2024-01-11 10:30)
PROC: (CPT 58552; 2024-01-11 10:30)
DX: R10.2 Pelvic and perineal pain (principal); N92.6 Irregular menstruation, unspecified; N94.10 Unspecified dyspareunia; D22.9 Melanocytic nevi, unspecified; N89.8 Other specified noninflammatory disorders of vagina; N88.8 Other specified noninflammatory disorders of cervix uteri; F41.8 Other specified anxiety disorders; E03.9 Hypothyroidism, unspecified
CPT/HCPCS: 58552; S2900; 36415; 85025; 88307; A9270; J0690; J1100; J1170; J1200; J1596; J1650; J1885; J2250; J2371; J2405; J2704; J3010; J7030; J7120; J7121

== ENCOUNTER 2024-05-23 10:50 | Emergency (ER) | payer BC, SELFPAY ==
--- NOTE | ~2024-05-23 | XR_ITS ---
CHEST RADIOGRAPH, PA AND LATERAL CLINICAL HISTORY: cough x 3 wks . COMPARISON: none TECHNIQUE: PA and lateral views of the chest. FINDINGS The cardiomediastinal silhouette is unremarkable. The lungs are clear. Visualized osseous structures and soft tissues are unremarkable. IMPRESSION: No focal infiltrate or effusion. Reviewed, dictated and finalized at location A. 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
[2024-05-23 11:10] VITALS: BP 123/82; PULSE 80; RESP 16; TEMP 36.8; O2SAT 96
--- NOTE | 2024-05-23 12:21 | ED.URI ---
HPI - URI/Sore Throat General Chief Complaint: Upper Respiratory Infection Stated Complaint: Cough Time Seen by Provider: 05/23/24 12:20 Source: patient, RN notes reviewed and old records reviewed Mode of arrival: ambulatory Limitations: no limitations History of Present Illness HPI Narrative: 33 year old [facility] complaints of having walking pneumonia 4 weeks ago and took Z-pack and felt better for a little while, cough has come back and she has some pressure on her chest with cough, some sore throat and nasal drainage and ear pressure Patient reports that her cough is loose at times, denies any shortness of breath or any known fevers or body aches. Patient reports that she has been taking Mucinex for her symptoms. MD elicited complaint: cough and sore throat Pertinent past history: pneumonia (4 weeks ago) and other Onset (ago): day(s) (4) Pain scale (0-10): 3 Able to tolerate fluids by mouth: Yes Treatments prior to arrival: other (Mucinex, Zyrtec) Related Data Home Medications ?Medication ?Instructions ?Recorded ?Confirmed ?Last Taken ?Type cetirizine 10 mg tablet (Allergy 10 mg PO HS 12/23/20 03/06/24 04/25/23 History Relief (cetirizine)) levothyroxine 50 mcg tablet 50 mcg PO HS 09/11/22 03/06/24 04/25/23 History lisinopril 10 mg tablet 10 mg PO DAILY 11/14/23 03/06/24 Unknown History cholecalciferol (vitamin D3) 250 250 mcg PO WEEKLY 01/04/24 03/06/24 Unknown History mcg (10,000 unit) capsule escitalopram oxalate 10 mg tablet 10 mg PO HS 01/04/24 03/06/24 Unknown History bupropion HCl 150 mg tablet,12 hr 150 mg PO DAILY 03/06/24 03/06/24 Unknown History sustained-release Allergies Allergy/AdvReac Type Severity Reaction Status Date / Time nitroglycerin AdvReac Loss of Verified 03/06/24 09:08 Consciousness Review of Systems Review of Systems: CONSTITUTIONAL: REports malaise, no chills, sweats, or fever. EYES: Denies visual changes, redness, or discharge. ENT: Reports rhinorrhea, congestion, no sinus pain, positive otalgia and positive for sore throat. CARDIOVASCULAR: Denies chest pain, palpitations, or edema. RESPIRATORY: Reports cough.? Denies dyspnea.pressure upper chest with cough GASTROINTESTINAL: Denies abdominal pain, nausea, vomiting, diarrhea SKIN: Denies rash or itching. MUSCULOSKELETAL: Denies myalgia. NEUROLOGIC: Denies headache. All systems reviewed & are unremarkable except as noted in HPI and below PMFSH Past Medical History Medical History (Updated 05/25/24 @ 16:01 by Ember Giraldo NP) Pneumonia History of cholestasis during Hypothyroidism Kidney stone Chronic cholecystitis Depression Overweight (BMI 25.0-29.9) Constipation Nausea Generalized anxiety disorder Surgical History Surgical History History of total hysterectomy with bilateral salpingo-oophorectomy (BSO) (12/2023) History of cholecystectomy (05/2023) History of ear surgery H/O laparoscopy Family History Family History Son Asthma Grandparent Depression Diabetes mellitus Heart disease Hypertension Mother Depression Father Depression Social History Social History Smoking status: Never smoker Second hand tobacco smoke exposure: No Alcohol intake: never Drinks per week: 1 Substance use: never Substance use type: does not use Do You Feel Safe in your Home?: Yes Lack of Transportation: No Lack of Food: Never True Current Housing: I Have Housing Concerned About Future Housing: No Difficulty Paying Gas/Electric Bills: No Difficulty Paying for Meds: No Currently Unemployed: No Education: Associate Degree Difficulty w/ Childcare or Family Care: No Living arrangements: with family Occupation/Education: occupation Gender identity (if verbalized by the patient): Female Sexual Orientation (if Verbalized by the Patient): Straight or Heterosexual Spiritual care concerns: No Agree to blood products: Yes Comments At time of signature, agree with nursing past medical, surgical, social and family history. There is no relevant family history pertinent to the presenting complaint Exam Narrative: GENERAL: Well-appearing, well-nourished, and in no acute distress. HEAD: Normocephalic EYES: PERRLA, conjunctivae clear ENT: Nares clear, turbinates edematous and erythematous, clear discharge. Mucous membranes moist. TM pearly ramirez with dull light reflex bilaterally; no tragal tenderness. Oropharynx erythematous without lesions. Tonsils not enlarged and without exudate, no drooling, no hoarseness, no trismus, uvula midline.post nasal drainage noted NECK: Supple. No lymphadenopathy CHEST: Clear to auscultation, breath sounds equal. No wheezing, rhonchi, rales, or stridor. No respiratory distress, speaks in full sentences.cough at times productive SAO2 96% on room air HEART: Regular rate and rhythm. No murmur heard. cough SKIN: Warm, dry, no rash. NEURO: Alert and oriented x3. PSYCH: Normal mood and affect Course Course Emergency Course: Patient is aware of diagnosis, understands and agrees to treatment plan.? Anticipatory guidance given.? Patient agrees to follow-up as directed and is aware of reasons to seek care at the emergency department. Portions of this record may have been created with voice recognition software Level of Care: Express Care Visit Vital Signs Vital signs: Vital Signs Temperature 36.8 C 05/23/24 11:10 Pulse Rate 80 05/23/24 11:10 Respiratory Rate 16 05/23/24 11:10 Blood Pressure 123/82 05/23/24 11:10 Pulse Oximetry 96 05/23/24 11:10 Temperature 36.8 C 05/23/24 11:10 Pulse Rate 80 05/23/24 11:10 Respiratory Rate 16 05/23/24 11:10 Blood Pressure 123/82 05/23/24 11:10 Pulse Oximetry 96 05/23/24 11:10 Oxygen Delivery Room Air 05/23/24 11:55 Reviewed MDM - URI/Sore Throat MDM Narrative Medical decision making narrative: Differential diagnosis considered: Barrios virus, strep pharyngitis, allergic rhinitis, upper respiratory tract infection, sinusitis, rhinosinusitis, nasopharyngitis. viral pharyngitis, otitis media, otitis externa, pneumonia, bronchitis, viral cough syndrome, viral syndrome, and influenza.? Exam findings show no acute concerns or changes; patient is non-toxic appearing and is in no distress.? Patient is appropriate for outpatient treatment and follow-up. Medical Records Attestation: I reviewed the patient's medical records. Lab Data Attestation: I reviewed the patient's lab results. Lab results narrative: strep screen negative culture sent Labs: Lab Results 05/23/24 Range/Units 11:04 POC Grp A Strep Screen Negative (Negative) Imaging Data My impression: no focal infiltrate or effusion Radiologist's impression: [facility] [address] [place] [address] [place] [address] XRay Report Signed Patient: Yasmin Vasquez : 1990 MR#: [id number] Age: 33 Acct:[id number] Loc: [id number] ADM Date: 05/23/24Attending Dr: Ordering Physician: Ember Giraldo APRN Date of Service: 05/23/24 Procedure(s): XR chest 2V Accession Number(s): [id number] cc: Ember Giraldo APRN; Boby Schmidt MD~ CHEST RADIOGRAPH, PA AND LATERAL CLINICAL HISTORY: cough x 3 wks . COMPARISON: none TECHNIQUE: PA and lateral views of the chest. FINDINGS The cardiomediastinal silhouette is unremarkable. The lungs are clear. Visualized osseous structures and soft tissues are unremarkable. IMPRESSION: No focal infiltrate or effusion. Reviewed, dictated and finalized at location A. 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 Critical Care Time Critical Care Time Critical Care Time: No Discharge Plan Discharge Clinical Impression: Cough Qualifiers: Cough type: acute Qualified Code(s): R05.1 - Acute cough Patient Disposition: Home, Self-Care Condition: Stable Instructions: Acute Cough (ED) Additional Instructions: Increase fluids especially juices and water [id number] cough and cold medicine of your choice for your symptoms Zyrtec Claritin or Marci daily include Coricidin brand decongestant Steroids as directed--take with food heat to the face 20-30 minutes 4-6 times a day for pain Salt water gargles, throat lozenges or throat sprays as desired If your symptoms persist, change or worsen significantly before you can contact your personal physician then please, without delay, go to the emergency department for further evaluation. Follow-up with PCP in 7-10 days or sooner if needed Patient Language: Tanzanian Prescriptions: New prednisone 20 mg tablet 20 mg PO BID Qty: 10 0RF No Action lisinopril 10 mg tablet 10 mg PO DAILY bupropion HCl 150 mg tablet sustained-release 12 hr 150 mg PO DAILY loperamide 2 mg capsule 2 mg PO Q6H PRN (Reason: loose stool) Qty: 20 0RF cetirizine [Allergy Relief (cetirizine)] 10 mg tablet 10 mg PO HS levothyroxine 50 mcg Tablet 50 mcg PO HS escitalopram oxalate 10 mg tablet 10 mg PO HS cholecalciferol (vitamin D3) 250 mcg (10,000 unit) capsule 250 mcg PO WEEKLY Rx Instructions: Sunday Follow-up/Referrals: Boby Schmidt MD [Primary Care Provider] - Time of Disposition: 12:52 Quality Rehana Coma Scale Eyes: Open Verbal: Oriented and Alert Motor: Follows Commands Rehana Coma Total Score: 15
[2024-05-23 12:25] LABS: EDSTREPNEGPOS1 Negative (Negative)
== END 2024-05-23 12:54 | disposition home or self-care (01) ==
PROVIDERS: Emergency Provider Registered Nurse; PCP Family Medicine Adolescent Medicine
DX: R05.1 Acute cough (principal)
CPT/HCPCS: 71046; 87081; 87880; 99213; G0463